=== PATIENT | male | born 1930 | race Caucasian/White ===

== ENCOUNTER 2017-02-05 21:31 | Emergency (ER) | payer OTHER, MEDICARE ==
[~2017-02-05] VITALS: Ht 170.2 cm; Wt 70.8 kg
[~2017-02-05 21:31] MED LIST: ACETAMINOPHEN650 M3 PO; ASPIR 8181 MG PO; CIPRO250 M1 PO; CIPRO500 M1 PO; CYCLOBENZAPRINE5 M2 PO; DOCUSATE SODIU100 M3 PO; FINASTERIDE5 MG PO; GABAPENTIN300 M2 PO; IBUPROFEN400 M1 PO; KEFLEX500 M1 PO; LACTULOSE10 GM/15 M PO; LIDODERM1 EACH EXT; LOSARTAN POTASS25 MG PO; LOVASTATIN40 M1 PO; MELOXICAM15 M1; MIRALAX119 GM PO; NEURONTIN100 M1; OSCAL ULTRA 6001 TAB PO; PEPCID40 M1 PO; RAPAFLO4 M1 PO; RAPAFLO8 MG PO; RETAINE MGD EY1 EACH; TYLENOL325 M1 PO; VITAMIN D31000 IU PO
--- NOTE | 2017-02-05 21:50 | ED GI/GU/ABDOMINAL COMPLAINT ---
History of Present Illness General Chief Complaint: Male Genitourinary Problems Stated Complaint: BIBA FOR URINARY RETENTION Source: patient Exam Limitations: no limitations Vital Signs & Intake/Output Vital Signs & Intake/Output Vital Signs Date Time Temp Pulse Resp B/P Pulse O2 O2 Flow FiO2 Ox Delivery Rate 02/05 2214 97.6 86 20 142/78 95 Room Air ED Intake and Output 02/06 0000 02/05 1200 Intake Total Output Total 300 Balance -300 Output, Urine 300 Patient 156 lb Weight Allergies Coded Allergies: Penicillins (RASH 02/19/16) Reconcile Medications Aspirin (Ecotrin) 81 MG TABLET.DR 1 TAB PO DAILY HEART HEALTH (Reported) Aspirin (Werner Chewable Aspirin) 81 MG TAB.CHEW 1 TAB PO DAILY HEART ( Reported) Ciprofloxacin HCl (Cipro) 500 MG TABLET 1 TAB PO BID UTI Cyclobenzaprine HCl 5 MG TABLET 1 TAB PO BID MUSCLE RELAXANT (Reported) Docusate Sodium 100 MG CAPSULE 100 MG PO DAILY NEEDED PRN CONSTIPATION Famotidine (Pepcid) 40 MG TABLET 1 TAB PO DAILY GERD (Reported) Finasteride 5 MG TABLET 1 TAB PO DAILY PROSTATE (Reported) Finasteride 5 MG TABLET 1 TAB PO DAILY PROSTATE (Reported) Gabapentin 300 MG CAPSULE 1 CAP PO BID neuropathy (Reported) Ibuprofen 400 MG TABLET 400 MG PO Q6-PRN PRN PAIN SCALE 4-6 (MODERATE) Lovastatin 40 MG TABLET 1 TAB PO DAILY CHOLESTEROL (Reported) with food Lovastatin 40 MG TABLET 1 TAB PO DAILY CHOL (Reported) with food Polyethylene Glycol 3350 (Miralax) 119 GM POWDER 17 GM PO DAILY PRN CONSTIPATION Silodosin (Rapaflo) 4 MG CAPSULE 1 CAP PO DAILY BPH (Reported) Silodosin (Rapaflo) 8 MG CAPSULE 1 CAP PO DAILY PROSTATE (Reported) Triage Nurses Notes Reviewed? yes Onset: Gradual Duration: hour(s): Timing: recent history Quality/Severity: cramping Location: suprapubic Radiation: no radiation Activities at Onset: none Prior Abdominal Problems: similar symptoms Modifying Factors: Worsens With: other (urinary retention). Associated Symptoms: abdominal pain HPI: 87 yo gentleman had suprapubic tube placed 4 days ago. He notes that starting in the evening, he has not seen any urine in the daley and has felt urinary retention. He has no fever, chills, nausea, vomiting, diarrhea. He is otherwise well. Past History Travel History Traveled to [place] past 21 day No Medical History Any Pertinent Medical History? 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 No Review of Systems Review of Systems Constitutional: Reports: no symptoms. EENTM: Reports: no symptoms. Respiratory: Reports: no symptoms. Cardiovascular: Reports: no symptoms. GI: Reports: no symptoms. Genitourinary: Reports: no symptoms. Musculoskeletal: Reports: no symptoms. Skin: Reports: no symptoms. Neurological/Psychological: Reports: no symptoms. Hematologic/Endocrine: Reports: no symptoms. Immunologic/Allergic: Reports: no symptoms. All Other Systems: Reviewed and Negative Physical Exam Physical Exam General Appearance: well developed/nourished Head: atraumatic, normal appearance Eyes: Bilateral: normal appearance. Ears, Nose, Throat, Mouth: hearing grossly normal Neck: normal inspection, supple, full range of motion Respiratory: normal breath sounds, chest non-tender, no respiratory distress, quiet respiration, lungs clear Cardiovascular: regular rate/rhythm Gastrointestinal: normal bowel sounds, soft, suprapubic tube site does not appear infection. no pus, no drainage, no bleeding.... genitalia are normal. Back: normal inspection Extremities: normal range of motion Neurologic/Psych: no motor/sensory deficits, awake, alert, oriented x 3 Skin: intact, normal color, warm/dry Core Measures ACS in differential dx? No Severe Sepsis Present: No Septic Shock Present: No Progress Differential Diagnosis: urinary retention vs uti vs other. Plan of Care: Orders Procedure Date/time Status URINALYSIS 02/05 2151 Complete Laboratory Tests 02/05/172224: Urine Color YEL, Urine Clarity CLEAR, Urine pH 6.0, Ur Specific [place] 1.020, Urine Protein TRACE H, Urine Ketones NEG, Urine Nitrite NEG, Urine Bilirubin NEG, Urine Urobilinogen 0.2, Ur Leukocyte Esterase TRACE H, Ur Microscopic SEDIMENT EXAMINED, Urine RBC 10-15 H, Urine WBC 1-3 H, Ur Epithelial Cells FEW , Urine Hemoglobin LARGE H, Urine Glucose NEG Initial ED EKG: none Departure Departure Disposition: HOME OR SELF CARE Condition: Stable Clinical Impression Primary Impression: Urinary retention Referrals: MICHELA PINON,GLENN Espinosa (PCP/Family) Departure Forms: Customer Survey General Discharge Information Comments suprapubic daley was flushed... clot expressed.... urine drained well without problem... no sign of infection... encouraged follow up with urology.
[2017-02-05 22:14] VITALS: BP 142/78
[2017-02-05] MEDS ORDERED: FINASTERIDE5 M1 PO (23:52)
[2017-02-05] MEDS ORDERED: BAYER CHEWABLE81 MG PO (23:52)
[2017-02-05] MEDS ORDERED: LOVASTATIN40 M1 PO (23:52)
[2017-02-05] MEDS ORDERED: RAPAFLO8 M1 PO (23:53)
== END 2017-02-06 00:09 ==
LOC: ERH 21:31
DX: R33.9 Retention of urine, unspecified (principal)
CPT/HCPCS: 81001

== ENCOUNTER 2017-02-22 14:13 | Emergency (ER) | payer OTHER, MEDICARE ==
[~2017-02-22] VITALS: Ht 170.2 cm; Wt 68.0 kg
[~2017-02-22 14:13] MED LIST changes: +BAYER CHEWABLE81 MG PO; +FINASTERIDE5 M1 PO; +RAPAFLO8 M1 PO
--- NOTE | 2017-02-22 14:19 | ED GENERAL ADULT ---
History of Present Illness General Chief Complaint: General Adult Stated Complaint: BIBA, S/P CHOKING EPISODE PER EMS Source: patient, old records, attorney lawyer Exam Limitations: no limitations Vital Signs & Intake/Output Vital Signs & Intake/Output Vital Signs Date Time Temp Pulse Resp B/P Pulse O2 O2 Flow FiO2 Ox Delivery Rate 02/22 1439 96.8 74 18 140/82 96 Room Air 02/22 1418 98 Room Air Allergies Coded Allergies: Penicillins (RASH 02/19/16) Reconcile Medications Aspirin (Ecotrin) 81 MG TABLET.DR 1 TAB PO DAILY HEART HEALTH (Reported) Aspirin (Werner Chewable Aspirin) 81 MG TAB.CHEW 1 TAB PO DAILY HEART ( Reported) Ciprofloxacin HCl (Cipro) 500 MG TABLET 1 TAB PO BID UTI Cyclobenzaprine HCl 5 MG TABLET 1 TAB PO BID MUSCLE RELAXANT (Reported) Docusate Sodium 100 MG CAPSULE 100 MG PO DAILY NEEDED PRN CONSTIPATION Famotidine (Pepcid) 40 MG TABLET 1 TAB PO DAILY GERD (Reported) Finasteride 5 MG TABLET 1 TAB PO DAILY PROSTATE (Reported) Finasteride 5 MG TABLET 1 TAB PO DAILY PROSTATE (Reported) Gabapentin 300 MG CAPSULE 1 CAP PO BID neuropathy (Reported) Ibuprofen 400 MG TABLET 400 MG PO Q6-PRN PRN PAIN SCALE 4-6 (MODERATE) Lovastatin 40 MG TABLET 1 TAB PO DAILY CHOLESTEROL (Reported) with food Lovastatin 40 MG TABLET 1 TAB PO DAILY CHOL (Reported) with food Polyethylene Glycol 3350 (Miralax) 119 GM POWDER 17 GM PO DAILY PRN CONSTIPATION Silodosin (Rapaflo) 4 MG CAPSULE 1 CAP PO DAILY BPH (Reported) Silodosin (Rapaflo) 8 MG CAPSULE 1 CAP PO DAILY PROSTATE (Reported) Triage Note: 87 Y/O MALE PRATIKA FROM ASSISTED LIVING FACILITY FOR EVAL S/P CHOKING EPISODE TODAY. PT ARRIVES ALERT AND ORIENTED, SPEAKING CLEARLY WITH NO DISTRESS NOTED. PT STATES HE WAS EATING A BIG PIECE OF CHICKEN AND CHOKED, "THEY DID THE HEIMLICH AND IT CAME OUT". PT ONLY C/O "SCRATCHY THROAT". DENIES FEELING SOB. DENIES DIFFICULTY BREATHING OR SWALLOWING. HANDLING OWN SECRETIONS. AWAITING EVAL Triage Nurses Notes Reviewed? yes Onset: Abrupt Duration: hour(s): (1), better, resolved prior to arrival Timing: single episode today Injury Environment: home Severity: mild, moderate Severity Numbers: 6 No Modifying Factors: none Associated Symptoms: denies HPI: 87-year-old male presents emergency room brought in by ambulance from the assisted living after he had a witnessed choking episode on a piece of chicken earlier today. A attorney lawyer perform the Heimlich maneuver and the patient was able to spit out the chicken. Since then he states he's had no complaints no cough congestion hemoptysis chest pain abdominal pain nausea vomiting. No fever or chills. The patient is otherwise without any complaints at this time asymptomatic. (ARACELIS CONWAY) Past History Travel History Traveled to [place] past 21 day No Medical History Any Pertinent Medical History? 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 No (ARACELIS CONWAY) Review of Systems Review of Systems Constitutional: Reports: see HPI. All Other Systems: Reviewed and Negative Comments Review of systems: See HPI, All other systems negative. Constitutional, no chills no fever, no malaise HEENT: No visual changes no sore throat no congestion, Cardiovascular: No chest pain , no palpitation Skin, no rashes, no change in skin Respiratory: No dyspnea no cough no sputum GI: No nausea no vomiting, no diarrhea, : No dysuria Muscle skeletal: No joint pain, no back pain, no neck pain, Neurologic: no headache Psych: No stress Heme/endocrine: No bruising no bleeding Immunology: No lymphadenopathy (ARACELIS CONWAY) Physical Exam Physical Exam General Appearance: well developed/nourished, alert, awake Comments: Well-developed well-nourished person in no acute distress HEENT: Normal EENT exam; PERRL, EOMI, HEAD is atraumatic. moist mucous membranes. Neck: Supple,normal range of motion Back:Full range of motion Cardiovascular: Regular rate and rhythms no murmurs Respiratory: No respiratory distress. Patient speaking in full complete sentences. Breath sounds clear to auscultation bilaterally: NO W/R/R Abdomen: Soft, nontender nondistended Extremity: No edema, full range of motion of extremities Neuro: Alert oriented x3, motor sensory normal, cranial nerves II through XII grossly intact. There were no obvious focal neurologic abnormalities. Skin: No appreciable rash on exposed skin, skin is warm and dry. Psych: Mood and affect is normal, memory and judgment is normal. Core Measures ACS in differential dx? No CVA/TIA Diagnosis: No Severe Sepsis Present: No Septic Shock Present: No (ARACELIS CONWAY) Progress Differential Diagnoses I considered the following diagnoses in my evaluation of the patient: Aspiration , food bolus, esophageal stricture, pneumonia Plan of Care: Patient clinically appears well without any complaints speaking full complete sentences tolerating secretions. He denies nausea vomiting pain case was discussed with Dr. lagunas who agrees with the plan I discussed with his attorney lawyer signs of infection to look out for, follow with his primary care this week they feel comfortable this plan cleared for discharge Initial ED EKG: none (ARACELIS CONWAY) Departure Departure Time of Disposition: 1440 Disposition: HOME OR SELF CARE Condition: Stable Clinical Impression Primary Impression: Choking episode Referrals: MICHELA PINON,GLENN Espinosa (PCP/Family) Additional Instructions: OBSERVE FOR SIGNS OF INFECTION: FEVER, CHILLS COUGH. RETURN TO THE ER ANYTIME WITH ANY CONCERNS Departure Forms: Customer Survey General Discharge Information (ARACELIS CONWAY) PA/FINANCIAL SECRETARY Co-Sign Statement Statement: ED Attending supervision documentation- [x] I saw and evaluated the patient. I have also reviewed all the pertinent lab results and diagnostic results. I agree with the findings and the plan of care as documented in the PA's/FINANCIAL SECRETARY's documentation. [] I have reviewed the ED Record and agree with the PA's/FINANCIAL SECRETARY's documentation. [] Additions or exceptions (if any) to the PAs/FINANCIAL SECRETARY's note and plan are summarized below: [] (DAYNA JACK,TE Locke) Critical Care Note Critical Care Note Critical Care Time: non-applicable (ARACELIS CONWAY)
[2017-02-22 14:39] VITALS: BP 140/82
== END 2017-02-22 16:28 ==
LOC: ERH 14:13
DX: T18.108A Unspecified foreign body in esophagus causing other injury, initial encounter (principal)

== ENCOUNTER 2017-04-10 19:31 | Emergency (ER) | payer OTHER, MEDICARE ==
--- NOTE | 2017-04-10 19:41 | ED MVC/FALL/TRAUMA COMPLAINT ---
History of Present Illness General Chief Complaint: Fall Stated Complaint: BIBA FALL Source: patient, family, EMS Exam Limitations: poor historian Vital Signs & Intake/Output Vital Signs & Intake/Output Vital Signs Date Time Temp Pulse Resp B/P B/P Pulse O2 O2 Flow FiO2 Mean Ox Delivery Rate 04/10 2139 97.5 84 18 142/74 97 Room Air Room Air 04/10 1938 97.5 18 160/80 96 Room Air Allergies Coded Allergies: Penicillins (RASH 02/19/16) Reconcile Medications Aspirin (Ecotrin) 81 MG TABLET.DR 1 TAB PO DAILY HEART HEALTH (Reported) Aspirin (Werner Chewable Aspirin) 81 MG TAB.CHEW 1 TAB PO DAILY HEART ( Reported) Ciprofloxacin HCl (Cipro) 500 MG TABLET 1 TAB PO BID UTI Cyclobenzaprine HCl 5 MG TABLET 1 TAB PO BID MUSCLE RELAXANT (Reported) Docusate Sodium 100 MG CAPSULE 100 MG PO DAILY NEEDED PRN CONSTIPATION Famotidine (Pepcid) 40 MG TABLET 1 TAB PO DAILY GERD (Reported) Finasteride 5 MG TABLET 1 TAB PO DAILY PROSTATE (Reported) Finasteride 5 MG TABLET 1 TAB PO DAILY PROSTATE (Reported) Gabapentin 300 MG CAPSULE 1 CAP PO BID neuropathy (Reported) Ibuprofen 400 MG TABLET 400 MG PO Q6-PRN PRN PAIN SCALE 4-6 (MODERATE) Lovastatin 40 MG TABLET 1 TAB PO DAILY CHOLESTEROL (Reported) with food Lovastatin 40 MG TABLET 1 TAB PO DAILY CHOL (Reported) with food Polyethylene Glycol 3350 (Miralax) 119 GM POWDER 17 GM PO DAILY PRN CONSTIPATION Silodosin (Rapaflo) 4 MG CAPSULE 1 CAP PO DAILY BPH (Reported) Silodosin (Rapaflo) 8 MG CAPSULE 1 CAP PO DAILY PROSTATE (Reported) Triage Note: 87 YEAR OLD MALE BIBA WITH FAMILY AFTER WHEELCHAIR TIPPED BACKWARDS GOING DOWN SOME STAIRS. PT AND FAMILY DENY HEADSTRIKE, LOC. PT REPORTS CHRONIC PAIN TO NECK AND BACK BUT EXACERBATED BY RECENT FALL. MARTINEZ AMAYA TO BEDSIDE FOR EVAL. Triage Nurses Notes Reviewed? yes Onset: Abrupt Duration: minute(s):, constant, continues in ED Timing: recent history Severity: moderate, severe Injuries/Fall Location: head, neck Method of Injury: fall Loss of Consciousness: no loss of consciousness HPI: 87-year-old male comes into emergency room for further evaluation of neck pain. Patient was being brought down steps in wheelchair and his neck flung backwards. His head may have hit the back of the wheelchair. No loss of consciousness. Patient complains of neck pain. Denies any extremity injuries. Patient did not fall down the steps and did not get flung from the wheelchair. No hip pain or extremity injuries. Some upper back pain. Denies any other associated symptoms. (JAY GUTIERRES) Past History Travel History Traveled to [place] past 21 day No Medical History Any Pertinent Medical History? 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 No (JAY GUTIERRES) Review of Systems Review of Systems Constitutional: Reports: no symptoms. Eyes: Reports: no symptoms. Ears, Nose, Throat, Mouth: Reports: no symptoms. Respiratory: Reports: no symptoms. Cardiovascular: Reports: no symptoms. Gastrointestinal/Abdominal: Reports: no symptoms. Genitourinary: Reports: no symptoms. Musculoskeletal: Reports: see HPI. Skin: Reports: no symptoms. Neurological/Psychological: Reports: no symptoms. All Other Systems: Reviewed and Negative (JAY GUTIERRES) Physical Exam Physical Exam General Appearance: well developed/nourished, alert, awake Head: atraumatic, normal appearance Eyes: Bilateral: normal appearance, EOMI. Ears, Nose, Throat, Mouth: hearing grossly normal, moist mucous membrane Neck: normal inspection, full range of motion Respiratory: normal breath sounds, no respiratory distress Gastrointestinal: soft, non-tender Back: normal inspection Extremities: normal range of motion Neurologic/Psych: awake, alert, oriented x 3, normal gait, normal mood/affect Skin: intact, normal color Core Measures ACS in differential dx? No Severe Sepsis Present: No Septic Shock Present: No (JAY GUTIERRES) Progress Differential Diagnosis: aoritic dissection (04/11/2017 8:33:38 AM), abd injury, C /T/L spine injury, ext injury, ICH, pelvis injury, pnemothorax, spinal cord injury Plan of Care: case was signed out to me at [address] d/w the pt and his family his ct results at length. need for close f/u with his pmd, rest, heating pads, tylenol for pain if needed. thye feel comfortable with plan i answered all of their questions, cleared for dcDiagnostic Imaging: Viewed by Me: CT Scan. Discussed w/RAD: CT Scan. Radiology Impression: EXAM TYPE: CAT - CT CERV SPINE WO IV CONTRAST; CT HEAD WO IV CONTRAST EXAMINATION: CT HEAD WITHOUT CONTRAST CT CERVICAL SPINE WITHOUT CONTRAST CLINICAL INFORMATION: Trauma. Neck pain. Hit head. COMPARISON: Head CT 11/11/2016. Cervical spine CT 08/23/2016 TECHNIQUE: Axial images of the head and cervical spine were obtained. Reformatted images were reviewed. DLP: 1132 mGy-cm FINDINGS: Head CT: No intracranial hemorrhage or territorial infarction. No extra-axial fluid collection. No mass effect or midline shift. There is persistent prominence of the ventricles and sulcal spaces. Periventricular white matter hypoattenuation likely reflects chronic ischemic microangiopathy. No significant subgaleal hematoma or calvarial fracture. Mastoid air cells and paranasal sinuses are aerated. Cervical spine CT: No fracture or dislocation. No prevertebral soft tissue swelling. No evidence of traumatic spondylolisthesis. No widening of the atlantoaxial or atlantooccipital articulations. Multilevel degenerative endplate changes with osteophyte formation and disc space narrowing. Multilevel facet arthropathy. Crowned dens appearance may reflect CPPD or degenerative changes. Spinal curvature noted. There is a degree of ectasia of the visualized portions of the thoracic aorta, likely not significantly changed compared to exam 08/23/2016; this is partially imaged. Emphysema. IMPRESSION: 1. No acute intracranial pathology. Chronic intracranial findings as described above. 2. No acute cervical spine pathology. At least moderate multilevel degenerative changes of the spine. Hand-Off Endorsed To: ARACELIS CONWAY Pending: CT (JAY GUTIERRES) Plan of Care: case was signed out to me at [address] d/w the pt and his family his ct results at length. need for close f/u with his pmd, rest, heating pads, tylenol for pain if needed. thye feel comfortable with plan i answered all of their questions, cleared for dc (SARITA HENRIQUEZ,ARACELIS) Departure Departure Disposition: HOME OR SELF CARE Condition: Stable Clinical Impression Primary Impression: Cervical strain Secondary Impressions: Head injury Referrals: MICHELA PINON,GLENN Espinosa (PCP/Family) Additional Instructions: Tylenol for pain. Moist heat to neck. Please go over all results of today's visit with your primary care doctor. Contact your primary care doctor to let them know you were here in the emergency room. There may be nonspecific findings which may not be related to your visit today here in the emergency room but may require further evaluation and chronic monitoring by your primary care doctor. If you had a laceration today the chance of foreign body always remains. You should follow-up with your primary care doctor for recheck in 3-5 days for a wound check. If you had an x-ray done there is a chance that a fracture could have been missed on initial read and you should follow-up with your primary care doctor for repeat x-rays if symptoms persist. If your blood pressure was elevated here in the emergency room please have rechecked by her primary care doctor within the next 48 hours by your primary care doctor. If you were prescribed a narcotic here in the emergency room or any type of controlled substances you're not allowed to drive while taking this medication or operate any type of heavy machinery. Narcotics can make you feel lightheaded dizziness nausea and can cause constipation. You may need to lemon picker a stool softener. Thank you for choosing [facility] emergency room. Please return to the emergency room immediately if you have any other concerns worsening of symptoms. Departure Forms: Customer Survey General Discharge Information (JAY GUTIERRES) Departure Time of Disposition: 2102 (ARACELIS CONWAY) PA/WELDING MACHINE OPERATOR RESISTANCE Co-Sign Statement Statement: ED Attending supervision documentation- [] I saw and evaluated the patient. I have also reviewed all the pertinent lab results and diagnostic results. I agree with the findings and the plan of care as documented in the PA's/WELDING MACHINE OPERATOR RESISTANCE's documentation. [x] I have reviewed the ED Record and agree with the PA's/WELDING MACHINE OPERATOR RESISTANCE's documentation. [] Additions or exceptions (if any) to the PAs/WELDING MACHINE OPERATOR RESISTANCE's note and plan are summarized below: [] (NILAY PINON,IZA Rizvi)
--- NOTE | 2017-04-10 20:44 | CT SCAN REPORT ---
EXAMINATION: CT HEAD WITHOUT CONTRAST CT CERVICAL SPINE WITHOUT CONTRAST CLINICAL INFORMATION: Trauma. Neck pain. Hit head. COMPARISON: Head CT 11/11/2016. Cervical spine CT 08/23/2016 TECHNIQUE: Axial images of the head and cervical spine were obtained. Reformatted images were reviewed. DLP: 1132 mGy-cm FINDINGS: Head CT: No intracranial hemorrhage or territorial infarction. No extra-axial fluid collection. No mass effect or midline shift. There is persistent prominence of the ventricles and sulcal spaces. Periventricular white matter hypoattenuation likely reflects chronic ischemic microangiopathy. No significant subgaleal hematoma or calvarial fracture. Mastoid air cells and paranasal sinuses are aerated. Cervical spine CT: No fracture or dislocation. No prevertebral soft tissue swelling. No evidence of traumatic spondylolisthesis. No widening of the atlantoaxial or atlantooccipital articulations. Multilevel degenerative endplate changes with osteophyte formation and disc space narrowing. Multilevel facet arthropathy. Crowned dens appearance may reflect CPPD or degenerative changes. Spinal curvature noted. There is a degree of ectasia of the visualized portions of the thoracic aorta, likely not significantly changed compared to exam 08/23/2016; this is partially imaged. Emphysema. IMPRESSION: 1. No acute intracranial pathology. Chronic intracranial findings as described above. 2. No acute cervical spine pathology. At least moderate multilevel degenerative changes of the spine.
[2017-04-10 21:39] VITALS: BP 142/74
== END 2017-04-10 21:40 ==
LOC: ERH 19:31
DX: S16.1XXA Strain of muscle, fascia and tendon at neck level, initial encounter (principal); S09.90XA Unspecified injury of head, initial encounter; W22.8XXA Striking against or struck by other objects, initial encounter; Y92.9 Unspecified place or not applicable; Y93.9 Activity, unspecified

== ENCOUNTER 2017-04-16 19:58 | Emergency (ER) | payer OTHER, MEDICARE ==
[~2017-04-16] VITALS: Ht 167.6 cm; Wt 65.8 kg
--- NOTE | 2017-04-16 20:00 | ED GI/GU/ABDOMINAL COMPLAINT ---
History of Present Illness General Chief Complaint: Male Genitourinary Problems Stated Complaint: BIBA BLOOD IN HIS URINE Source: patient, old records, CARETAKERS Exam Limitations: no limitations Allergies Coded Allergies: Penicillins (RASH 02/19/16) Reconcile Medications Aspirin (Werner Chewable Aspirin) 81 MG TAB.CHEW 1 TAB PO DAILY HEART ( Reported) Ciprofloxacin HCl (Cipro) 500 MG TABLET 1 TAB PO BID UTI Cyclobenzaprine HCl 5 MG TABLET 1 TAB PO BID MUSCLE RELAXANT (Reported) Famotidine 20 MG TABLET 1 TAB PO DAILY GI (Reported) Finasteride 5 MG TABLET 1 TAB PO DAILY PROSTATE (Reported) Gabapentin 300 MG CAPSULE 1 CAP PO BID neuropathy (Reported) Lovastatin 40 MG TABLET 1 TAB PO DAILY CHOLESTEROL (Reported) with food Meloxicam 15 MG TABLET 1 TAB PO DAILY PAIN (Reported) Polyethylene Glycol 3350 (Miralax) 119 GM POWDER 17 GM PO DAILY PRN CONSTIPATION Sennosides/Docusate Sodium (Senna S Tablet) 8.6 MG-50 MG TABLET 1 TAB PO QPM GI (Reported) Silodosin (Rapaflo) 4 MG CAPSULE 1 CAP PO QPM BPH (Reported) Triage Nurses Notes Reviewed? yes Onset: Abrupt Duration: day(s): (3), constant Timing: remote history Quality/Severity: burning Severity Numbers: 4 Location: suprapubic Radiation: no radiation Activities at Onset: none Prior Abdominal Problems: similar symptoms No Modifying Factors: none Associated Symptoms: denies HPI: 87 Year old male with past medical history of hypertension, hyperlipidemia, aortic aneurysm, BPH, arthritis presents after his caretakers noted blood in his suprapubic catheter which was replaced 3 days ago associated with burning pain around the site of the catheter. The patient has had no fever chills nausea or vomiting. There's been no change in his mental status per caretakers. He is not currently on any antibiotics no diarrhea nausea or vomiting. No modifying factors or associated symptoms otherwise. (SARITA HENRIQUEZ,ARACELIS) Vital Signs & Intake/Output Vital Signs & Intake/Output Vital Signs Date Time Temp Pulse Resp B/P B/P Pulse O2 O2 Flow FiO2 Mean Ox Delivery Rate 04/16 2248 98.0 78 20 168/86 97 Room Air 04/16 2216 98.9 76 20 166/85 96 04/16 2004 97.6 76 20 175/85 96 Past History Medical History Any Pertinent Medical History? 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 No (ARACELIS CONWAY) Review of Systems Review of Systems Constitutional: Reports: see HPI. All Other Systems: Reviewed and Negative Comments Review of systems: See HPI, All other systems negative. Constitutional, no chills no fever, no malaise HEENT: No visual changes no sore throat no congestion Cardiovascular: No chest pain , no palpitation , Skin: no rashes, no change in skin Respiratory: No dyspnea no cough no sputum GI: No nausea no vomiting, no diarrhea, no bloating/constipation : No dysuria hematuria, no frequency, no discharge Muscle skeletal: No joint pain,no back pain, no neck pain, Neurologic: No numbness no headache Psych: No stress Heme/endocrine: No bruising no bleeding Immunology: No lymphadenopathy (ARACELIS CONWAY) Physical Exam Physical Exam General Appearance: well developed/nourished, alert, awake Gastrointestinal: soft Comments: Well-developed well-nourished person in no acute distress HEENT: Normal EENT exam; PERRL, EOMI, HEAD is atraumatic. moist mucous membranes. Neck: Supple, normal range of motion Back: Nontender, no CVA tenderness. Full range of motion Cardiovascular: Regular rate and rhythms no murmurs rubs Respiratory: Chest nontender.There were no bony deformities, no asymmetry. No respiratory distress. Patient speaking in full complete sentences. Breath sounds clear to auscultation bilaterally: NO W/R/R Abdomen: Soft, nontender nondistended, no appreciable organomegaly. Normal bowel sounds. No rebound/guarding, the area surrounding the suprapubic catheter is clean and dried no overlying erythema Extremity: No edema, full range of motion of extremities, Neuro: Alert oriented x3, motor sensory normal. There were no obvious focal neurologic abnormalities. Skin: No appreciable rash on exposed skin, skin is warm and dry. Psych: Mood and affect is normal, memory and judgment is normal. Core Measures ACS in differential dx? No Severe Sepsis Present: No Septic Shock Present: No (ARACELIS CONWAY) Progress Differential Diagnosis: perforated viscous, SBO, ureterolithiasis, urinary retention, urethritis, UTI/pyelo, malignancy Initial ED EKG: none (ARACELIS CONWAY) Plan of Care: Orders Procedure Date/time Status CBC WITHOUT DIFFERENTIAL 04/16 2040 Complete BASIC METABOLIC PANEL 04/16 2040 Complete CULTURE,URINE 04/16 2015 Active URINALYSIS 04/16 1959 Complete Laboratory Tests 04/16/172054: Anion Gap 9, Estimated GFR 48 L, BUN/Creatinine Ratio 26.4 H, Glucose 110 H, Calcium 9.1, CBC w Diff NO MAN DIFF REQ, RBC 4.37 L, MCV 87.2, MCH 28.7, RDW 14.3, MPV 8.8, Gran % 58.9, Lymphocytes % 26.7, Monocytes % 7.0, Eosinophils % 6.9 H, Basophils % 0.5, Absolute Granulocytes 5.6, Absolute Lymphocytes 2.6, Absolute Monocytes 0.7 H, Absolute Eosinophils 0.7, Absolute Basophils 0.1, PUBS MCHC 32.9 L 04/16/172011: Urinalysis LIGHT H, Urine Color YEL, Urine Clarity HAZY H, Urine pH 6.0, Ur Specific [place] >= 1.030, Urine Protein 100 H, Urine Ketones NEG, Urine Nitrite POS H, Urine Bilirubin NEG, Urine Urobilinogen 0.2, Ur Leukocyte Esterase MOD H, Ur Microscopic SEDIMENT EXAMINED, Urine RBC >75 H, Urine WBC > 75 H, Ur Epithelial Cells RARE, Urine Bacteria MANY H, Urine Mucus MANY H, Urine Hemoglobin LARGE H, Urine Glucose NEG Microbiology 04/16 2012 URINE ROUT: Urine Culture - RECD Labs ordered old records reviewed patient's previous urine cultures have grown out Klebsiella sensitive to Cipro Case discussed with Dr. Sierra who evaluated the patient and agrees with plan I discussed with the patient at length all of their results. I had an extensive conversation regarding need for close follow up with their primary care physician this week as well as return precautions. I answered all of their questions, they feel comfortable with the plan and follow-up care. I discussed with the patient/family the medications that they will receive. I gave them signs and symptoms that could indicate an adverse reaction. I have advised them to limit their activities until they can see how they respond to the medication. (ARACELIS CONWAY) Departure Departure Time of Disposition: 2156 Disposition: HOME OR SELF CARE Condition: Stable Clinical Impression Primary Impression: UTI (urinary tract infection) Referrals: MICHELA PINON,GLENN Espinosa (PCP/Family) Additional Instructions: CIPRO DIRECTED. FOLLOW UP WITH YOUR PMD ON TUESDAY, RETURN TO THE ER WITH ANY CONCERNS Departure Forms: Customer Survey General Discharge Information Prescriptions: Current Visit Scripts Ciprofloxacin HCl (Cipro) 1 TAB PO BID #14 TAB (ARACELIS CONWAY) PA/TRAY WORKER Co-Sign Statement Statement: ED Attending supervision documentation- [X] I saw and evaluated the patient. I have also reviewed all the pertinent lab results and diagnostic results. I agree with the findings and the plan of care as documented in the PA's/TRAY WORKER's documentation. [] I have reviewed the ED Record and agree with the PA's/TRAY WORKER's documentation. [] Additions or exceptions (if any) to the PAs/TRAY WORKER's note and plan are summarized below: [] (TIMOTHY PINON,TE Cortes)
[2017-04-16] MEDS ORDERED: FAMOTIDINE20 M1 PO (20:23)
[2017-04-16] MEDS ORDERED: SENNA S TABLET1 EACH PO (20:24)
[2017-04-16] MEDS ORDERED: MELOXICAM15 M1 PO (20:25)
[2017-04-16 21:12] LABS: ABSOLUTE BASOPHIL COUNT 0.1 /CUMM (0.0-0.2); ABSOLUTE EOSINOPHIL COUNT 0.7 /CUMM (0.0-0.7); ABSOLUTE GRANULOCYTE CT 5.6 /CUMM (1.4-6.5); ABSOLUTE LYMPH COUNT 2.6 /CUMM (1.2-3.4); ABSOLUTE MONOCYTE COUNT 0.7 /CUMM (0.10-0.60); BASOPHIL % 0.5 % (0.0-2.0); EOSINOPHIL % 6.9 % (0-5); GRANULOCYTE % 58.9 % (42.2-75.2); HEMATOCRIT 38.1 % (42-52); MEAN CORPUSCULAR HGB 28.7 PG (27.0-31.0); MEAN CORPUSCULAR HGB CONC 32.9 G/DL (33.0-37.0); MEAN CORPUSCULAR VOLUME 87.2 FL (80.0-94.0); MEAN PLATELET VOLUME 8.8 FL (7.4-10.4); PLATELET COUNT 237 /CUMM (130-400); RBC DISTRIBUTION WIDTH 14.3 % (11.5-14.5); RED BLOOD CELL CT 4.37 /CUMM (4.70-6.10); WHITE BLOOD CELL COUNT 9.6 /CUMM (4.8-10.8)
[2017-04-16] MEDS ORDERED: CIPRO500 M1 PO (21:48)
[2017-04-16 22:48] VITALS: BP 168/86
== END 2017-04-16 22:51 ==
LOC: ERH 19:58
PROVIDERS: Physician Assistant Medical
DX: N39.0 Urinary tract infection, site not specified (principal)
CPT/HCPCS: 81001; 87086

== ENCOUNTER 2017-05-14 21:03 | Inpatient (IN) | payer OTHER, MEDICARE ==
[~2017-05-14] VITALS: Ht 177.8 cm; Wt 68.0 kg
[~2017-05-14 21:03] MED LIST changes: +FAMOTIDINE20 M1 PO; +MELOXICAM15 M1 PO; +SENNA S TABLET1 EACH PO
--- NOTE | 2017-05-14 21:18 | NUR ---
MINNIE FROM [facility] FOR C/O SOB, WEAKNESS AND PRODUCTIVE COUGH X 3 DAYS. DUO NEB GIVEN IN ROUTE, #18G LEFT HAND BY EMS. PT ARRIVES IN NAD.
--- NOTE | 2017-05-14 21:23 | NUR ---
PT PRESENTS TO ER IN NAD, RESP EVEN, NONLABORED, EQUAL RISE AND FALL OF THE CHEST. PT A&OX4, DENIES PAIN OR DISCOMFORT. REPORTS A COUGH FOR PAST 2-3 DAYS AND INTERMITTENT SOB. FAMILY NOW AT BEDSIDE. ED MD AT BEDSIDE.
--- NOTE | 2017-05-14 21:44 | ED DYSPNEA/ASTHMA COMPLAINT ---
History of Present Illness General Chief Complaint: General Adult Stated Complaint: BIBA FOR DARK URINE,AMS,CONGESTION Source: patient, family, old records, EMS Exam Limitations: no limitations Vital Signs & Intake/Output Vital Signs & Intake/Output Vital Signs Date Time Temp Pulse Resp B/P B/P Pulse O2 O2 Flow FiO2 Mean Ox Delivery Rate 05/15 0329 97.7 70 18 142/70 94 Room Air 05/15 0254 94 Room Air Room Air 05/14 2303 97.2 85 18 141/73 93 Room Air 05/14 2232 94 Room Air Room Air 05/14 2110 97.7 61 20 140/90 97 Aerosol Mask ED Intake and Output 05/15 0000 05/14 1200 Intake Total Output Total Balance Patient 150 lb Weight Weight Reported by Patient Measurement Method Allergies Coded Allergies: Penicillins (RASH 02/19/16) Reconcile Medications Aspirin (Werner Chewable Aspirin) 81 MG TAB.CHEW 1 TAB PO DAILY HEART ( Reported) Cyclobenzaprine HCl 5 MG TABLET 1 TAB PO BID MUSCLE RELAXANT (Reported) Famotidine 20 MG TABLET 1 TAB PO DAILY GI (Reported) Finasteride 5 MG TABLET 1 TAB PO DAILY PROSTATE (Reported) Gabapentin 300 MG CAPSULE 1 CAP PO BID neuropathy (Reported) Lovastatin 40 MG TABLET 1 TAB PO DAILY CHOLESTEROL (Reported) with food Polyethylene Glycol 3350 (Miralax) 119 GM POWDER 17 GM PO DAILY PRN CONSTIPATION Sennosides/Docusate Sodium (Senna S Tablet) 8.6 MG-50 MG TABLET 1 TAB PO QPM GI (Reported) Silodosin (Rapaflo) 4 MG CAPSULE 1 CAP PO QPM BPH (Reported) Core Measure Meds Pre-Hospital aspirin Triage Note: BIBA FROM [facility] FOR C/O SOB, WEAKNESS AND PRODUCTIVE COUGH X 3 DAYS. DUO NEB GIVEN IN ROUTE, #18G LEFT HAND BY EMS. PT ARRIVES IN NAD. Triage Nurses Notes Reviewed? yes Onset: 3 days Duration: day(s):, continues in ED, intermittent Timing: recent history Severity: moderate Activities at Onset: rest Prior Episodes/Possible Cause: occasional episodes Associated Symptoms: cough, weakness HPI: 2 weeks prior to admission patient was treated for UTI with Cipro. 1 week prior to admission his suprapubic catheter was changed. 3 days prior to admission family note patient has had episodes of confusion nonproductive cough decreased appetite dark urine in the suprapubic tube collection bag along with increased urine output from the penis. 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 He also complains of abdominal discomfort about the suprapubic tube site. There has been no fever chills nausea vomiting diarrhea dysuria rash bleeding headache chest pain Past History Travel History Traveled to [place] past 21 day No Medical History Any Pertinent Medical History? 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 No Review of Systems Review of Systems Constitutional: Reports: see HPI, malaise. EENTM: Reports: no symptoms. Respiratory: Reports: see HPI, cough, short of breath. Cardiovascular: Reports: no symptoms. GI: Reports: no symptoms. Genitourinary: Reports: see HPI. Musculoskeletal: Reports: no symptoms. Skin: Reports: no symptoms. Neurological/Psychological: Reports: see HPI, confusion. Hematologic/Endocrine: Reports: no symptoms. Immunologic/Allergic: Reports: no symptoms. All Other Systems: Reviewed and Negative Physical Exam Physical Exam General Appearance: well developed/nourished, alert, awake, anxious, mild distress, obese Head: atraumatic, normal appearance Eyes: Bilateral: normal appearance, PERRL, EOMI. Ears, Nose, Throat: normal pharynx, normal ENT inspection Neck: normal inspection, supple, full range of motion, no midline tenderness Respiratory: chest non-tender, quiet respiration, decreased breath sounds, tachypnea Cardiovascular: normal peripheral pulses, irregularly irregular, norml femoral pulses equa Peripheral Pulses: 4+ carotid (R), 4+ carotid (L) Gastrointestinal: normal bowel sounds, soft, non-tender, no organomegaly, suprapubic tube site without evidence of inflammation discharge erythema but with foul smell Extremities: normal inspection, normal capillary refill, normal range of motion, no edema Neurologic/Psych: no motor/sensory deficits, awake, alert, oriented x 3, normal mood/affect, 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 No Severe Sepsis Present: No Septic Shock Present: No Progress Differential Diagnosis: bronchitis, CHF, COPD, pneumonia Plan of Care: Orders Procedure Date/time Status Regular Diet 05/15 B Active CBC WITHOUT DIFFERENTIAL 05/15 06 Active BASIC ELECTROLYTES PLUS BUN&CR 05/15 06 Active Suprapubic Cath Care 05/15 0429 Active Pathway - chart 05/15 0239 Active Vital Signs 05/15 0159 Active Teach/Educate 05/15 0159 Active Pain Treatment and Response 05/15 0159 Active Nutritional Intake, Monitor 05/15 0159 Active Isolation 05/15 0159 Active Intake & Output 05/15 0159 Active Patient Care Conference 05/15 0159 Active Activity/Ambulation 05/15 0159 Active SWALLOW EVALUATION 05/15 0038 Active TRC EVALUATION (GEN) 05/15 0038 Active PT Evaluate & Treat 05/15 0038 Active Pathway - chart 05/15 0038 Active House Staff 05/15 0038 Active Code Status 05/15 0038 Active VTE Mechanical Prophylaxis 05/15 UNK Active PHYSICIAN CONSULT 05/15 UNK Active Patient Data 05/14 2318 Active OXYGEN SETUP (GEN) 05/14 2231 Active Saline Lock 05/14 2231 Active Admit to inpatient 05/14 2231 Active Vital Signs 05/14 2231 Active Activity/Ambulation 05/14 2231 Active Code Status 05/14 2231 Complete BLOOD CULTURE 05/14 2230 Active CULTURE,URINE 05/14 2133 Active BLOOD CULTURE 05/14 2133 Active URINALYSIS 05/14 2133 Complete TROPONIN LEVEL 05/14 2133 Complete MAGNESIUM 05/14 2133 Complete LACTIC ACID 05/14 2133 Complete COMPREHENSIVE METABOLIC PANEL 05/14 2133 Complete CBC WITHOUT DIFFERENTIAL 05/14 2133 Complete B-TYPE NATRIURETIC PEP (BNP) 05/14 2133 Complete Intake & Output 05/14 2109 Active EKG 05/14 2104 Active Current Medications Sig/Tiffanie Start time Last Medication Dose Stop Time Status Admin Senna/Docusate Sodium 1 TAB QPM 05/15 2200 AC (Senokot S) Atorvastatin Calcium 10 MG 1700 05/15 1700 UNVr (Lipitor) Aspirin 81 MG DAILY 05/15 1000 UNVr (Aspirin) Famotidine 20 MG DAILY 05/15 1000 UNVr (Pepcid) Finasteride 5 MG DAILY 05/15 1000 UNVr (Proscar) Gabapentin 300 MG BID 05/15 1000 UNVr (Neurontin) Heparin Sodium 5,000 UNIT Q8 05/15 0600 UNVr 05/15 (Porcine) 0317 Ceftazidime 1,000 MG Q12H 05/15 0300 AC 05/15 (Fortaz) 0314 Acetaminophen 650 MG Q6P PRN 05/15 0245 UNVr (Tylenol) Acetaminophen 1,000 MG Q6P PRN 05/15 0245 UNVr (Ofirmev) Morphine Sulfate 1 MG Q6PRN PRN 05/15 0245 UNVr (Morphine) Non-Formulary 0 SEE ADMIN CRITERIA 05/15 0045 UNVr Medication (NON FORMULARY) Polyethylene Glycol 17 GM DAILY PRN 05/15 0045 UNVr (Miralax) Sodium Chloride 1,000 ML ONCE ONE 05/15 0015 CAN (Normal Saline 0.9%) 05/15 0814 Laboratory Tests 05/15/17 0033: Lactic Acid Cancelled 05/14/172211: Urine Color YEL, Urine Clarity CLDY H, Urine pH 6.5, Ur Specific Jones 1.025, Urine Protein >=300 H, Urine Ketones NEG, Urine Nitrite NEG, Urine Bilirubin NEG, Urine Urobilinogen 0.2, Ur Leukocyte Esterase MOD H, Ur Microscopic SEDIMENT EXAMINED, Urine RBC 10-15 H, Urine WBC > 75 H, Ur Epithelial Cells RARE, Urine Bacteria MANY H, Urine Mucus FEW, Urine Hemoglobin LARGE H, Urine Glucose NEG 05/14/172204: Anion Gap 16, Estimated GFR 52 L, BUN/Creatinine Ratio 27.7 H, Glucose 130 H, Lactic Acid 1.7, Calcium 9.1, Magnesium 2.0, Total Bilirubin 0.4, AST 21, ALT 51 , Alkaline Phosphatase 89, Troponin I 0.03, Trc-K-Rwatfhzqqar Pept 336 H, Total Protein 7.4, Albumin 3.8, Globulin 3.6, Albumin/Globulin Ratio 1.1, CBC w Diff NO MAN DIFF REQ, RBC 4.74, MCV 86.8, MCH 28.2, RDW 14.5, MPV 8.7, Gran % 48.0, Lymphocytes % 35.5, Monocytes % 10.3 H, Eosinophils % 5.6 H, Basophils % 0.6, Absolute Granulocytes 4.7, Absolute Lymphocytes 3.5 H, Absolute Monocytes 1.0 H, Absolute Eosinophils 0.5, Absolute Basophils 0.1, PUBS MCHC 32.5 L Microbiology 05/14 2256 BLOOD: Blood Culture - RECD 05/14 2216 BLOOD: Blood Culture - RECD 05/14 2212 URINE ROUT: Urine Culture - RECD Diagnostic Imaging: Viewed by Me: Radiology Read, CT Scan. Discussed w/RAD: Radiology Read, CT Scan. Radiology Impression: 1. No pulmonary embolus identified. 2. Ascending aortic aneurysm measuring approximately 4.8 cm. 3. Upper lobe predominant emphysema. 4. Age-indeterminate compression deformities in the lower thoracic and upper lumbar spine. VTE: negative CXR Impression: Unremarkable chest exam. Initial ED EKG: normal axis, normal intervals, normal p-waves, normal QRS complex, normal sinus rhythm, no ST T wave changes Prior EKG: unchanged Rhythm Strip: normal sinus rhythm Departure Departure Disposition: STILL A PATIENT Condition: Stable Clinical Impression Primary Impression: UTI (urinary tract infection) Qualifiers: Urinary tract infection type: catheter-associated UTI Indwelling urinary catheter type: cystostomy catheter Encounter type: initial encounter Qualified Codes: T83.510A - Infection and inflammatory reaction due to cystostomy catheter, initial encounter; N39.0 - Urinary tract infection, site not specified Secondary Impressions: Altered mental status, unspecified Qualifiers: Altered mental status type: delirium Qualified Code: R41.0 - Disorientation, unspecified Bronchitis Referrals: MICHELA PINON,GLENN Espinosa (PCP/Family) Departure Forms: Customer Survey General Discharge Information Admission Note Spoke With: SHARLENE PINEDA MD Documentation of Exam: Documentation of any treatments & extenuating circumstances including Concerns Regarding Discharge (functional status, medication knowledge or non-compliance, living conditions, etc.) that warrant an admission rather than observation: IV antibiotics follow cultures serial lab exam medication adjustment beta agonist nebs continuing care discharge planning Critical Care Note Critical Care Note Critical Care Time: non-applicable
[2017-05-14 22:13] LABS: ABSOLUTE BASOPHIL COUNT 0.1 /CUMM (0.0-0.2); ABSOLUTE EOSINOPHIL COUNT 0.5 /CUMM (0.0-0.7); ABSOLUTE GRANULOCYTE CT 4.7 /CUMM (1.4-6.5); ABSOLUTE LYMPH COUNT 3.5 /CUMM (1.2-3.4); BASOPHIL % 0.6 % (0.0-2.0); EOSINOPHIL % 5.6 % (0-5); HEMATOCRIT 41.1 % (42-52); MEAN CORPUSCULAR HGB 28.2 PG (27.0-31.0); MEAN CORPUSCULAR HGB CONC 32.5 G/DL (33.0-37.0); MEAN CORPUSCULAR VOLUME 86.8 FL (80.0-94.0); MEAN PLATELET VOLUME 8.7 FL (7.4-10.4); PLATELET COUNT 231 /CUMM (130-400); RBC DISTRIBUTION WIDTH 14.5 % (11.5-14.5); RED BLOOD CELL CT 4.74 /CUMM (4.70-6.10); WHITE BLOOD CELL COUNT 9.8 /CUMM (4.8-10.8)
--- NOTE | 2017-05-14 22:15 | RADIOLOGY REPORT ---
EXAMINATION: XR PORTABLE CHEST CLINICAL INFORMATION: Cough and SOB. COMPARISON: None TECHNIQUE: Portable frontal view of the chest was obtained. FINDINGS: Both lungs are hyperinflated but clear of acute process.. The heart size and pulmonary vascularity is normal. No gross bony abnormality seen. IMPRESSION: Unremarkable chest exam.
[2017-05-14] MEDS ORDERED: TRAZODONE HCL50 M1 PO (22:28)
--- NOTE | 2017-05-14 22:45 | NUR ---
DR GILL AT BEDSIDE DISCUSSING RESULTS
--- NOTE | 2017-05-14 23:16 | NUR ---
2ND IV ACCESS ESTABLISHED, #20 RFA PT MEDICATED WITH IV ROCEPHIN PER ORDERS NIECE IN ROOM WHO IS ALSO POA WOULD LIKE MD STAFF TO KNOW THAT THE TRAZADONE ON THE MEDICATION LIST WAS ONLY PRESCRIBED YESTERDAY TO HELP PATIENT WITH SLEEPING BUT IT'S THE COUGHING THAT HAS KEPT HIM FROM SLEEPING AND SINCE HE IS NOW BEING TREATED FOR THE COUGHING HE SHOULDN'T NEED THE TRAZODONE SO SHE WOULD LIKE THE MEDICATION CANCELLED. REPORT GIVEN TO PARISH QIU.
--- NOTE | 2017-05-14 23:22 | History & Physical ---
[facility]ON PINON,[facility] [place] 05/14/17 2321: General Information and HPI MD Statement: I have seen and personally examined CLARIBEL VERNON and documented this H&P. The patient is a 87 year old M who presented with a patient stated chief complaint of generalized weakness. Source of Information: patient, family, old records Exam Limitations: no limitations History of Present Illness: Mr. Vernon is a 87 y/o M with PMHx of BPH c/b urinary retention s/p suprapubic catheter placement, TIA/CVA and HTN who presents from assisted living facility with progressive weakness, confusion, dark urine and dry cough. History is provided by family members as well as business services clerk from the assisted living facility at bedside. For the past few days leading up to current presentation, patient started having intermittent episodes of confusion, manifested as saying "stuff that does not make sense" and "repeating the same thing over and over again" per his business services clerk. He has been increasingly weak during this time as well. At his baseline, patient is able to move from the bed to the rolling walker however he now requires 2-person assistance. According to his business services clerk, patient's fluid intake has been adequate, however patient notes decreased appetite. Patient has also been noted to have dark urine recently. On 02/02, suprapubic catheter was placed for urinary retention in the setting of BPH. On 04/16, patient presented to the ED with hematuria and dysuria, was found to have a UTI with urine cultures later growing Klebsiella pneumoniae and Pseudomonas aeruginosa both sensitive to ciprofloxacin. He was discharged home on a 7-day course of ciprofloxacin which he has completed. One week prior to current presentation suprapubic catheter was changed. Patient notes "terrible" pain in his penis which has been ongoing for some time, as well as abdominal pain most pronounced around the umbilicus. Recently he has had increased urine output from the penis. Patient has a chronic dry cough at baseline which has been ongoing for the past few years, however over the past few days it has become more severe, although it remains nonproductive. He endorses shortness of breath as well. He has also been experiencing nasal congestion and rhinorrhea during this time. Of note, patient has had two episodes of choking recently and has been placed on a chopped diet. There are no sick contacts, fever or chills. Patient's business services clerk has noticed that the swelling in his legs has increased recently. Patient uses two pillows to sleep at baseline which is unchanged. He denies paroxysmal nocturnal dyspnea. 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 self Services at Home: Home Health Aide Primary Language: Greek Smoking Status: Former Smoker (Smoked 20 Yrs, Quit 20 Yrs Ago) ETOH Use: denies use Illicit Drug Use: denies illicit drug use Living Will? yes Power of Power Lineman Technician/HCP? yes Name of POA/HCP: Ankita Smart Functional Ability ADLs Independent: dressing, eating, toileting, bathing. Ambulation: walker IADLs Independent: finances, telephone. Needs Assist: housework, transportation. 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 Denies: chills, fever. EENTM: Reports: nasal congestion. Cardiovascular: Reports: peripheral edema. Denies: chest pain, palpitations. Respiratory: Reports: cough, short of breath. Denies: sputum production. GI: Reports: abdominal pain. Denies: nausea, vomiting. Genitourinary: Reports: dysuria, pain. Musculoskeletal: Reports: no symptoms. Skin: Reports: no symptoms. Neurological/Psychological: Reports: confusion. Hematologic/Endocrine: Reports: no symptoms. Immunologic/Allergic: Reports: no symptoms. All Other Systems: Reviewed and Negative Exam & Diagnostic Data Last 24 Hrs of Vital Signs/I&O Vital Signs Date Time Temp Pulse Resp B/P B/P Pulse O2 O2 Flow FiO2 Mean Ox Delivery Rate 05/14 2303 97.2 85 18 141/73 93 Room Air 05/14 2232 94 Room Air Room Air 05/14 2110 97.7 61 20 140/90 97 Aerosol Mask Intake & Output 05/15 0800 05/15 0000 05/14 1600 Intake Total Output Total Balance Patient 68.039 kg Weight Weight Reported by Patient Measurement Method Physical Exam General Appearance Alert, Oriented X3, No Acute Distress Skin No Rashes Skin Temp/Moisture Exam: Warm/Dry Sepsis Skin Exam (color): Normal for Ethnicity HEENT Atraumatic, Dry Mucous Membranes Neck Supple Cardiovascular Regular Rate, Normal S1, Normal S2, No Murmurs, Gallops, Rubs Lungs Clear to Auscultation Abdomen Soft, No Tenderness, Positive Bowel Sounds, Suprapubic Catheter Site Without Erythema or Swelling Extremities No Clubbing, No Cyanosis, Bilateral Lower Extremities with 1+ Pitting Edema Last 24 Hrs of Labs/Wilman: Laboratory Tests 05/15/17 0643: Anion Gap 7, Estimated GFR > 60, BUN/Creatinine Ratio 29.0 H, Troponin I 0.03, CBC w Diff NO MAN DIFF REQ, RBC 4.17 L, MCV 86.6, MCH 28.6, RDW 14.6 H, MPV 9.0, Gran % 54.2, Lymphocytes % 28.9, Monocytes % 9.3, Eosinophils % 6.9 H, Basophils % 0.7, Absolute Granulocytes 4.8, Absolute Lymphocytes 2.6, Absolute Monocytes 0.8 H, Absolute Eosinophils 0.6, Absolute Basophils 0.1, PUBS MCHC 33.0 05/15/17 0641: Troponin I Cancelled 05/15/17 0033: Lactic Acid Cancelled Diagnostic Data EKG Results Sinus tachycardia HR 109 Ventricular bigeminy 1st degree AV block SD 264 QTc 437 CXR Results Unremarkable chest exam. Assessment/Plan Assessment: Mr. Vernon is a 87 y/o M with PMHx of BPH c/b urinary retention s/p suprapubic catheter placement, TIA/CVA and HTN who presents with progressive weakness, confusion, dark urine and dry cough. #Complicated UTI: Meets criteria for complicated UTI given suprapubic catheter that was placed for urinary retention in the setting of BPH (02/02) and later exchanged one week prior to current presentation. Diagnosed with UTI on 04/16 with urine cultures growing Klebsiella pneumoniae and Pseudomonas aeruginosa sensitive to ciprofloxacin and completed 1 week of oral ciprofloxacin. Currently afebrile and without leukocytosis but with persistent penile and lower abdominal pain which warrants treatment for UTI. S/p 1 dose of IV ceftriaxone in the ED. * Admit to General Medicine. * Urology consulted. Appreciate their recs. * Start ceftazidime 1 g IV Q8H. * Check urine and blood cultures. * Consider discontinuing antibiotics if urine cultures come back negative and patient remains afebrile. #CONNOR: BUN 36 and creatinine 1.3 on admission, with a BUN/Cr >20 suggestive of dehydration. Current baseline is unknown but it was 0.9-1.2 in 2016. Of note, it was 1.4 on 04/16 during his presentation for UTI, which likely represented CONNOR as well. * Administer 1 L bolus of normal saline. * Repeat BMP in the AM especially since patient is receiving contrast which may affect kidney function. * Avoid nephrotoxic medications. #Nonproductive cough/SOB: Etiology is unclear but could be secondary to upper respiratory infection given association with nasal congestion and rhinorrhea, although there is also high suspicion for PE as patient is relatively immobile. No focal consolidation on CXR, fever or leukocytosis to suggest pneumonia. Has recently been started on a chopped diet in light of recent choking episodes. * Check CTA Chest to rule out PE. * TRC and nebs. * Chopped and thin liquids diet. Swallow evaluation in the AM. * Robitussin PRN for cough. #Generalized weakness/deconditioning: Could represent age-related progressive decline in performance status with possible contribution from UTI or upper respiratory tract infection. * PT evaluation. * Possible discharge to [facility] pending eval. * Check TSH, free T4, vitamin D and vitamin B12. #Ventricular bigeminy: Present on admission EKG. K and Mg WNL. Troponin negative. * Repeat EKG and troponin in the AM. * Check BMP and replete to K >4 and Mg >2. #BPH: Takes finasteride 5 mg PO daily and silodosin 5 mg PO daily. * Continue wbqnn-vk-fxzcyvubp finasteride 5 mg PO daily. * Tamsulosin 0.4 mg PO daily while inpatient as as silodosin is not on formulary. #HLD: Takes lovastatin 40 mg PO daily. * Atorvastatin 10 mg PO daily while inpatient as lovastatin is not on formulary. * Continue hmets-lh-muqkpytfk aspirin 81 mg PO daily. #GERD: * Continue herpg-kd-dpnejiytd famotidine 20 mg PO daily. #Peripheral neuropathy: * Continue klfbk-ur-oxhsnllbp gabapentin 300 mg PO BID. Diet: Regular - Chopped and thin liquids Pain: Morphine 1 mg IV Q6H PRN for severe pain (scale 7-10) Tylenol 1 g IV Q6H PRN for moderate pain (scale 4-6) Tylenol 650 mg PO Q6H PRN for mild pain (scale 1-3) DVT PPx: HSQ and ALPs CODE: DNR/DNI As Ranked By This Provider Problem List: 1. CONNOR (acute kidney injury) 2. BPH (benign prostatic hyperplasia) 3. Complicated UTI (urinary tract infection) 4. HLD (hyperlipidemia) 5. GERD (gastroesophageal reflux disease) 6. Peripheral neuropathy 7. Ventricular bigeminy 8. Generalized weakness Core Measures/Miscellaneous Acute Coronary Syndrome ACS Diagnosis: No Cerebrovascular Accident CVA/TIA Diagnosis: No Congestive Heart Failure CHF Diagnosis: No VTE (View Protocol) VTE Risk Factors: Acute medical illness, Age > 40, Immobility, paresis [facility] prophylaxis d/t: No contraindications No VTE Pharm Prophylaxis d/t: No contraindications VTE Diagnosis: No VTE Type: NONE VTE Confirmed by (Test): NONE Sepsis (View Protocol) Severe Sepsis Present: No Septic Shock Septic Shock Present: No Miscellaneous Documentation Attending Case Discussed With: JOHN PINEDA MDJoshua Primary Care Physician: GLENN ABERNATHY MD Patient sees these Specialists Urologist Josef Pearl MD Waste Disposal Leakage Tester Martell Altamirano MD Level of Patient Care: General Medicine ARACELIS IKNG 05/15/17 0004: General Information and HPI Allergies/Medications Home Med list Aspirin (Werner Chewable Aspirin) 81 MG TAB.CHEW 1 TAB PO DAILY HEART ( Reported) Cyclobenzaprine HCl 5 MG TABLET 1 TAB PO BID MUSCLE RELAXANT (Reported) Famotidine 20 MG TABLET 1 TAB PO DAILY GI (Reported) Finasteride 5 MG TABLET 1 TAB PO DAILY PROSTATE (Reported) Gabapentin 300 MG CAPSULE 1 CAP PO BID neuropathy (Reported) Lovastatin 40 MG TABLET 1 TAB PO DAILY CHOLESTEROL (Reported) with food Polyethylene Glycol 3350 (Miralax) 119 GM POWDER 17 GM PO DAILY PRN CONSTIPATION Sennosides/Docusate Sodium (Senna S Tablet) 8.6 MG-50 MG TABLET 1 TAB PO QPM GI (Reported) Silodosin (Rapaflo) 4 MG CAPSULE 1 CAP PO QPM BPH (Reported) Resident Review Statement Resident Statement: examined this patient, discussed with paralegal internship, agreed with paralegal internship, amended to note Other Findings: This is an 87 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 He reports to have an underlying cough which has been there for a long time but in the past few days the cough has increased more in frequency and is bothering him it is dry not able to expectorate anything and denies any fevers or chills associated with this. He has no sick contact. Together with the cough he has noted runny nose but denies any sore throat or pain while swallowing. The family and the business services clerk reports that they have noted his urine is dark, more than usual appearing the way it did when he had UTI in the past and the patient reports is experiencing a burning sensation when he passes urine but denies frequent site in that most of the urine is going through his suprapubic catheter. He volunteers lower abdominal pain predominantly around the suprapubic site but covering most of the area. The business services clerk volunteers that the patient is more confused than usual doing repetitive behavior and asking thinks which does not make sense she has also noted that he is more deconditioned requiring assist of 2 to move from the bed and this has worsened in the past few days. Recently the patient has been choking on his food which hasn't necessitated him being on chopped diet. The patient is not pleased with chopped diet but understands that it's important for his airway protection. Edge Trimming Machine Operator reports that has noted swelling of the lower limbs but the patient denies any orthopnea or paroxysmal nocturnal dyspnea, for long-term have been using 2 pillows and thus what he uses without any problems. He denies any chest pain palpitation or shortness of breath, he has no nausea or vomiting though he reports decrease in appetite, he has no lightheadedness or dizziness. Vitals on arrival febrile 97.7 heart rate of 61 respiration of 20 blood pressure 140/90 97% on room air Physical exam: Alert and oriented not in any acute distress very pleasant responding to questions and interacting appropriately HEENT: Dry mucous membranes Abdomen: Normal contour moving with respiration normal bowel sounds suprapubic insertion site is clean and has no any discharges. Chest: Clear lungs bilaterally Heart: RRR, S1/2 normal no murmurs Extremities: Mild pitting edema +1 no cyanosis no clubbing LABS: H&H H&H 13.4/41.1, WBC 9.8, creatinine 1.3, lactic acid 1.7, proBNP 336 UA: Positive leukocyte Estrase, WBC more than 75 CXR unremarkable Assessment and plan This is an 87 years old gentleman with history of hypertension hyperlipidemia out to Aneurysm BPH status post suprapubic catheter who is presenting with several days of dark urine, pain during micturition, altered mental status and general deconditioning requiring assist of 2. In this elderly patient with these symptoms might signify urinary tract infection despite having normal white counts. Patient is on chopped diet to prevent choking. The patient on presentation had increased creatinine of 1.3 and the urine is positive for leukocyte esterase and pyuria with WBC more than 75. Urinary tract infection Acute kidney injury Deconditioning Swallowing difficulty on chopped diet Admit the patient to general medicine floor Vital signs every shift Patient has a growing multiple poly-resistant bacteria in urine will provide broad-spectrum coverage with Ceftazidine 1000mg Q8 IV hydration with normal saline 1000cc second bottle to run for 2 hours and then maintenance at 125 mL per hour PT evaluation Fall precautions GERD continue famotidine 20 mg daily BPH continue finasteride 5 mg daily, Silodosin 4mg Hyperlipidemia continue lovastatin 20 mg daily Patient is DNR/DNI Heparin for DVT prophylaxis Pain pathway EDWIN PINON, [facility] 05/15/17 0610: Attending MD Review Statement Attending Statement Attending MD Statement: examined this patient, discuss w/resident/PA/SAP SENIOR DEVELOPER, agreed w/resident/PA/SAP SENIOR DEVELOPER Attending Assessment/Plan: 87 yo M from assisted living, with h/o BPH/ urinary retention s/p suprapubic catheter placed February 02 2017, replaced 1 week ago, h/o HTN, HLD, TIA/CVA, levoscoliosis, cervical spinal stenosis, recently treated for UTI 2 weeks ago with Cipro, is brought in for multiple complaints episodes of confusion over the past 3 days, worsening nonproductive cough, dyspnea, poor appetite, dark urine in the suprapubic tube with some foul smell, penile pain and increased urine output from the penis. He c/o abdominal pain, but when pointed to the catheter there does not seem to be any discomfort there, he instead points at the penis. Denies fever chills, nausea, vomiting, diarrhea. Night aide was at bedside during my eval. Weakness, deconditioning with patient now being an assist of 2. Recently, patient is more immobile with developing LE edema. VSS. Labs: no leukocytosis, BUN 36, creat 1.3 (baseline 0.9-1.0), glucose 130, lactic acid normal, trop neg, UA positive with LE, WBC> 75, many bacteria. CXR neg. EKG: Sinus tachycardia, LVH, ventricular bigeminy. CTA chest: no PE, AAA 4.8 cm, upper lobe predominant emphysema, thyroid gland is heterogeneous, small right thyroid lobe calcification+. Echo (2016): EF > 65%, stage 1DD. 1. Confusion, urinary symptoms and positive UA, in the setting of suprapubic catheter for BPH. GM admit, urine culture, based on previous cultures that have grown pseudomonas and klebsiella, will initiate IV ceftaz. If urine cultures are negative and patient remains afebrile, consider discontinuing antibiotics. IV fluids. Urology consult (I spoke with Dr. Wei, confirmed plan as above). Penile pain is 2/2 bladder spasms. Continue flomax and finasteride. 2. CONNOR. IV hydration and recheck renal functions in AM. 3. Cough, URI symptoms, no evidence of pneumonia or PE. Provide TRC nebs, brendaitussin for now. Patient has been on a chopped diet for recent choking episodes, will check swallow eval in AM. Check TSH, free T4. 4. Weakness, deconditioning. PT eval, check vit D, B12. Possible need for STR. 5. Evidence of ventricular bigeminy on EKG. Please check mag and K levels and replete as needed. Check EKG and troponin in AM. DVT ppx Hep SC. DNR/I.
--- NOTE | 2017-05-15 00:30 | NUR ---
PT AID REQUESTING WATER FOR PT, CUP OF ICE WATER PROVIDED FOR PT. TOLERATED WELL.
--- NOTE | 2017-05-15 01:02 | NUR ---
DR. PINEDA TO SEE PT, CTA NOW ORDERED, PTS PERSONAL AIDE AT BEDSIDE. WILL NOT BE STAYING WITH PT.
--- NOTE | 2017-05-15 01:23 | NUR ---
REPORT TO ADORE. PT TO CT FOR CTA. THEN WILL GO TO FLOOR.
--- NOTE | 2017-05-15 01:44 | NUR ---
RETURNED FROM [facility] FLOOR CALLED FOR TRANSPORT, UNABLE WILL CALL A SIDE, SUPER CALLED PT IS AGGREVATED ABOUT "EXCUSES TO KEEP HIM HERE"
--- NOTE | 2017-05-15 03:15 | CT SCAN REPORT ---
EXAMINATION: CT ANGIOGRAM OF THE CHEST WITH AND WITHOUT CONTRAST (CT PULMONARY ANGIOGRAM FOR PE) CLINICAL INFORMATION: Shortness of breath and immobility COMPARISON: Chest x-ray 05/14/2017 TECHNIQUE: Prior to contrast administration, noncontrast localization images were obtained. Subsequently, multidetector volumetric imaging was performed from the thoracic inlet to below the diaphragms following the administration of 95 mL Optiray intravenous contrast. No contrast reaction reported. Sagittal, coronal, and MIP oblique sagittal reformatted images were obtained on the CT workstation, uploaded to PACS, and reviewed. Total exam dose-length product 502.36 mGy-cm. FINDINGS: QUALITY OF STUDY/CONTRAST BOLUS: Satisfactory PULMONARY ARTERIES: No central or segmental pulmonary emboli. THORACIC AORTA: The ascending aorta is dilated to approximately 4.8 cm. The descending thoracic aorta is tortuous. Evaluation of the aorta is limited due to the phase of postcontrast imaging. There is atherosclerotic calcification along the aorta. LUNG: There is moderate upper lobe predominant emphysema. No dense region of consolidation bilaterally. Dependent atelectasis is present in the lower lobes. PLEURA: No pleural effusion or pneumothorax. MEDIASTINUM: The thyroid gland is heterogeneous. A small right thyroid lobe calcification is noted. No mediastinal lymphadenopathy is seen. Cardiac size is within normal limits; no pericardial effusion. Coronary artery calcifications are present. No evidence of septal bowing or right heart strain. CHEST WALL/AXILLA: No axillary or internal mammary lymphadenopathy. OSSEOUS STRUCTURES: There are multiple age-indeterminate compression deformities in the lower thoracic and upper lumbar spine. UPPER ABDOMEN: Unremarkable. No reflux of contrast into the hepatic veins to suggest elevated right heart pressures. IMPRESSION: 1. No pulmonary embolus identified. 2. Ascending aortic aneurysm measuring approximately 4.8 cm. 3. Upper lobe predominant emphysema. 4. Age-indeterminate compression deformities in the lower thoracic and upper lumbar spine. VTE: negative
[2017-05-15 03:29] VITALS: BP 142/70
--- NOTE | 2017-05-15 06:11 | Admission Certification ---
Admission Certification Certification Statement - As attending physician, I certify that at the time of - admission, based on clinical presentation, severity of - symptoms, need for further diagnostic testing and - therapeutic interventions, and risk of adverse outcomes - without in-hospital treatment, in my clinical assessment, - this patient requires an acute hospital stay for a minimum - of two nights or longer. I have also considered psychsocial - factors such as support system, advanced age, financial - issues, cognitive issues, and failed out-patient treatments, - past re-admission history, safety of patient, and lack of - compliance as applicable. Specific rationale supporting this admission is: UTI, CONNOR, weakness, deconditioning.
[2017-05-15 08:33] LABS: ABSOLUTE BASOPHIL COUNT 0.1 /CUMM (0.0-0.2); ABSOLUTE EOSINOPHIL COUNT 0.6 /CUMM (0.0-0.7); ABSOLUTE GRANULOCYTE CT 4.8 /CUMM (1.4-6.5); ABSOLUTE LYMPH COUNT 2.6 /CUMM (1.2-3.4); ABSOLUTE MONOCYTE COUNT 0.8 /CUMM (0.10-0.60); BASOPHIL % 0.7 % (0.0-2.0); EOSINOPHIL % 6.9 % (0-5); GRANULOCYTE % 54.2 % (42.2-75.2); MEAN CORPUSCULAR HGB 28.6 PG (27.0-31.0); MEAN CORPUSCULAR VOLUME 86.6 FL (80.0-94.0); PLATELET COUNT 184 /CUMM (130-400); RBC DISTRIBUTION WIDTH 14.6 % (11.5-14.5); RED BLOOD CELL CT 4.17 /CUMM (4.70-6.10); WHITE BLOOD CELL COUNT 8.8 /CUMM (4.8-10.8)
[2017-05-15 09:50] LABS: HEMATOCRIT 36.1 % (42-52)
--- NOTE | 2017-05-15 11:51 | PN- Housestaff ---
LITA PINON,[facility] 05/15/17 1151: Subjective Follow-up For: Complicated UTI Subjective: Agent was seen and examined this morning, leg comfortably in bed, aborted cough spells, dry nature, not associated with fever and chills. Patient denied any abdominal pain, chest pain. He also reported urine drippling despite having the pubic catheter. V/S stable. Review of Systems Constitutional: Reports: see HPI. Objective Last 24 Hrs of Vital Signs/I&O Vital Signs Date Time Temp Pulse Resp B/P B/P Pulse O2 O2 Flow FiO2 Mean Ox Delivery Rate 05/15 0934 Room Air Room Air 05/15 0329 97.7 70 18 142/70 94 Room Air 05/15 0254 94 Room Air Room Air 05/14 2303 97.2 85 18 141/73 93 Room Air 05/14 2232 94 Room Air Room Air 05/14 2110 97.7 61 20 140/90 97 Aerosol Mask Intake & Output 05/15 1600 05/15 0800 05/15 0000 Intake Total Output Total 250 Balance -250 Output, Urine 250 Patient 68.039 kg Weight Weight Reported by Patient Measurement Method Physical Exam General Appearance: Alert, Oriented X3, Cooperative, No Acute Distress Skin: No Rashes, No Breakdown, No Significant Lesion HEENT: Atraumatic, PERRLA, EOMI, Mucous Membr. moist/pink Cardiovascular: Regular Rate, Normal S1, Normal S2, No Murmurs Lungs: Clear to Auscultation, Wheeze in RLQ Abdomen: Normal Bowel Sounds, Soft, No Tenderness, No Hepatospenomegaly, No Masses Neurological: Normal Gait, Normal Speech, Strength at 5/5 X4 Ext, Normal Tone, Sensation Intact, Cranial Nerves 3-12 NL, Reflexes 2+ Extremities: No Clubbing, No Cyanosis, No Edema, Normal Pulses, No Tenderness/ Swelling Assessment/Plan Assessment: Mr. Vernon is a 87 y/o M with PMHx of BPH c/b urinary retention s/p suprapubic catheter placement, TIA/CVA and HTN who presents with progressive weakness, confusion, dark urine and dry cough. #Complicated UTI: Meets criteria for complicated UTI given suprapubic catheter that was placed for urinary retention in the setting of BPH (02/02) and later exchanged one week prior to current presentation. Diagnosed with UTI on 04/16 with urine cultures growing Klebsiella pneumoniae and Pseudomonas aeuriginosa sensitive to ciprofloxacin and completed 1 week of oral ciprofloxacin. Currently afebrile and without leukocytosis but with persistent penile and lower abdominal pain which warrants treatmentAdmit to General Medicine. * Urology consultation was obtained, the recommendation * Continue ceftazidime 1 g IV Q8H Day#2 * Urine culture positive for gram-negative rods and gram-positive cocci * Blood culture is negative so far * Urology recommendation for oxybutynin 5 mg twice a day if patient complains of bladder spasms or urine loss by urethra #CONNOR: BUN 36 and creatinine 1.3 on admission, with a BUN/Cr >20 suggestive of dehydration. Current baseline is unknown but it was 0.9-1.2 in 2016. Of note, it was 1.4 on 04/16 during his presentation for UTI, which likely represented CONNOR as well. * Patient received 1 L bolus of normal saline, BUN and creatinine improved * Avoid nephrotoxic medications #Nonproductive cough/SOB: Etiology is unclear but could be secondary to upper respiratory infection given association with nasal congestion and rhinorrhea, although there is also high suspicion for PE as patient is relatively immobile. No focal consolidation on CXR, fever or leukocytosis to suggest pneumonia. Has recently been started on a chopped diet in light of recent choking episodes. * TRC and nebs * Chopped and thin liquids diet. Swallow evaluation is pending * Robitussin PRN for cough #Generalized weakness/deconditioning: Could represent age-related progressive decline in performance status with possible contribution from UTI or upper respiratory tract infection. * PT evaluation * Vitamin B12 normal, vitamin D low * Start vitamin D 1000 units daily #Ventricular bigeminy: Present on admission EKG. K and Mg WNL. Troponin negative. * Troponin negative, EKG no acute changes #BPH: Takes finasteride 5 mg PO daily and silodosin 5 mg PO daily. * Continue xleyk-sl-xnxqdfqhi finasteride 5 mg PO daily * Tamsulosin 0.4 mg PO daily while inpatient as as silodosin is not on formulary #HLD: Takes lovastatin 40 mg PO daily * Atorvastatin 10 mg PO daily while inpatient as lovastatin is not on formulary * Continue brrnj-xx-igkthfzxx aspirin 81 mg PO daily #GERD: * Continue zhijs-wd-nxzkosvmn famotidine 20 mg PO daily #Peripheral neuropathy: * Continue dfzbu-bi-qkrvkgjjs gabapentin 300 mg PO BID Diet: Regular - Chopped and thin liquids Problem List: 1. BPH (benign prostatic hyperplasia) 2. UTI (urinary tract infection) Pain Ratin Pain Location: NOne Pain Goal: Pain 4 or less Pain Plan: Mild pain pathway Tomorrow's Labs & Rationales: TONEY, RODRICK SETH MD,RAMIREZ 05/15/17 1313: Attending MD Review Statement Attending Statement Attending MD Statement: examined this patient, discuss w/resident/PA/EXCELSIOR MACHINE OPERATOR, agreed w/resident/PA/EXCELSIOR MACHINE OPERATOR, reviewed EMR data (avail), discussed with nursing, discussed with case mgmt, reviewed images, amended to note Attending Assessment/Plan: 67-year-old male from assisted living home, with past medical history significant for BPH/urinary retention status post suprapubic catheter which has been recently replaced about 1 week ago, history of hypertension, hyperlipidemia , TIA/CVA, scoliosis, cervical spinal stenosis and recently treated for UTI with Cipro, is being admitted to the floor with altered mental status most likely due to weakness, deconditioning, a TIA and possibly a UTI. Patient was seen and examined this morning on the bedside and was found to be alert and oriented 3. He reported that he does not has any pain or discomfort. He was started for possible UTI with IV ceftriaxone keeping in mind his previous cultures and sensitivity. His urine grew gram-negative rods and gram- positive cocci. Urology consult has been obtained. The 19 has spoken to him and he thinks that the lower abdominal pain might have been due to bladder spasms and to continue with Flomax and finasteride. His AK I has improved with IV hydration and his kidney functions are back to normal. Given his cuff he was started on TRC nebs and being kept on chopped diet for recent choking sensations. We will evaluate him for follow a valve and will get a PT consult as his baseline he needs assistance and ambulates with a wheelchair. His tubes are negative and mag and potassium levels within normal limits. We will follow the urine culture for sensitivity. We will continue the rest of his home medications and DVT prophylaxis.
--- NOTE | 2017-05-15 13:42 | Cons- Urology ---
General Information and HPI Consulting Request Date of Consult: 05/15/17 Requested By: EDWIN PINON,SHARLENE Reason for Consult: DARK URINE, HX OF UTI, GENITALIA DISCOMFORT Source of Information: patient History of Present Illness: 87 year old male with hypertension, cva, bed ridden admitted for dry cough,sob, confusion, dark urine, hx of uti. suprapubic cystostomy in january per biju Dobbins, for bph disease - on finasteride and rapaflo daily. treated with cipro for 10days on april 16 for mixed uti . occasional urine incontinence per urethra- sp tube changed 1 week ago. occasional bladder spam pain Allergies/Medications Allergies: Coded Allergies: Penicillins (RASH 02/19/16) Home Med List: Aspirin (Werner Chewable Aspirin) 81 MG TAB.CHEW 1 TAB PO DAILY HEART ( Reported) Cyclobenzaprine HCl 5 MG TABLET 1 TAB PO BID MUSCLE RELAXANT (Reported) Famotidine 20 MG TABLET 1 TAB PO DAILY GI (Reported) Finasteride 5 MG TABLET 1 TAB PO DAILY PROSTATE (Reported) Gabapentin 300 MG CAPSULE 1 CAP PO BID neuropathy (Reported) Lovastatin 40 MG TABLET 1 TAB PO DAILY CHOLESTEROL (Reported) with food Polyethylene Glycol 3350 (Miralax) 119 GM POWDER 17 GM PO DAILY PRN CONSTIPATION Sennosides/Docusate Sodium (Senna S Tablet) 8.6 MG-50 MG TABLET 1 TAB PO QPM GI (Reported) Silodosin (Rapaflo) 4 MG CAPSULE 1 CAP PO QPM BPH (Reported) Past History Medical History Neurological: CVA, peripheral neuropathy, TIA EENT: cataracts Cardiovascular: aortic aneurysm, hypertension, hyperlipidemia Respiratory: NONE Gastrointestinal: GERD Hepatic: NONE Renal: benign prost hyperplasia Musculoskeletal: chronic back pain, osteoarthritis, C5-C6 stenosis Psychiatric: NONE Endocrine: NONE Blood Disorders: NONE Cancer(s): NONE WIRE WORKER/Reproductive: NONE Surgical History Pertinent Surgical History: cataract removal (bilateral), hernia Family History Relations & Conditions If Any: MOTHER FH: cancer Psychosocial History Where Do You Live? Assisted Living Who Do You Live With? self Services at Home: Home Health Aide Primary Language: Luxembourger Smoking Status: Former Smoker (Smoked 20 Yrs, Quit 20 Yrs Ago) ETOH Use: denies use Illicit Drug Use: denies illicit drug use Living Will? yes Power of Computer Operations Manager/HCP? yes Name of POA/HCP: Ankita Carcova Functional Ability ADLs Independent: dressing, eating, toileting, bathing. Ambulation: walker IADLs Independent: finances, telephone. Needs Assist: housework, transportation. Employment History Employment: Retired Profession/Employer: [employer] Exam & Diagnostic Data Vital Signs and I&O Vital Signs Date Time Temp Pulse Resp B/P B/P Pulse O2 O2 Flow FiO2 Mean Ox Delivery Rate 05/15 1228 94 Room Air Room Air 05/15 0934 Room Air Room Air 05/15 0329 97.7 70 18 142/70 94 Room Air 05/15 0254 94 Room Air Room Air 05/14 2303 97.2 85 18 141/73 93 Room Air 05/14 2232 94 Room Air Room Air 05/14 2110 97.7 61 20 140/90 97 Aerosol Mask Intake & Output 05/15 1600 05/15 0800 05/15 0000 05/14 1600 05/14 0800 05/14 0000 Intake Total Output Total 250 Balance -250 Output, Urine 250 Patient 150 lb Weight Weight Reported by Patient Measurement Method sp tube draining light jaspreet urine no epidiymitis Assessment/Plan Assessment/Plan r/o recurrent uti i advise: hydration- bun36 creatinine 1.3 await urine culture report oxybutynin 5mg bid if further bladder spasms of pain and urine loss per urethra Consult Acknowledgment - Thank you for your consult request. Attending MD Review Statement Attending Statement Attending MD Statement: examined this patient Attending Assessment/Plan: key damon md urologist covering for dr Dylan kurtz
[2017-05-15 14:57] VITALS: BP 124/60
[2017-05-15 22:41] VITALS: BP 142/80
[2017-05-16 06:03] VITALS: BP 132/76
--- NOTE | 2017-05-16 07:32 | PN- Housestaff ---
EFRAIN PINON,ELVIA 05/16/17 0732: Subjective Follow-up For: Complicated UTI, confusion Complaints: no complaints Subjective: I followed up and examined the patient today. He was resting comfortably in bed , did not have any complaints, not in distress, suprapubic catheter in place, vitals stable overnight, no overnight issues. Of note, he was confused about his current condition, but was oriented to time, place, and person. Review of Systems Constitutional: Reports: no symptoms. Objective Last 24 Hrs of Vital Signs/I&O Vital Signs Date Time Temp Pulse Resp B/P B/P Pulse O2 O2 Flow FiO2 Mean Ox Delivery Rate 05/16 1535 Room Air Room Air 05/16 1433 98.9 73 20 142/81 95 Room Air 05/16 0942 132/70 05/16 0805 94 Room Air 05/16 0603 98.1 84 22 132/76 95 Room Air 05/16 0000 Room Air 05/15 2241 97.9 67 20 142/80 94 Room Air 05/15 1937 93 Room Air Intake & Output 05/16 1600 05/16 0800 05/16 0000 Intake Total 550 100 200 Output Total 548 915 8134 Balance -350 -550 -1300 Intake, Oral 550 100 200 Output, Urine 786 406 2264 Physical Exam General Appearance: Alert, Oriented X3, Cooperative, No Acute Distress Other Physical Findings: Skin: No Rashes, No Breakdown, No Significant Lesion HEENT: Atraumatic, PERRLA, EOMI, Mucous Membr. moist/pink Cardiovascular: Regular Rate, Normal S1, Normal S2, No Murmurs Lungs: Clear to Auscultation, no wheeze heard today Abdomen: Normal Bowel Sounds, Soft, No Tenderness, No Hepatospenomegaly, No Masses, no CVA tenderness, suprapubic cath in place draining well, with no leaking from the site or from the urethra. Neurological: Normal Speech, Strength at 5/5 X4 Ext, Normal Tone, Sensation Intact, Cranial Nerves 3-12 NL, Reflexes 2+, Gait not examined. Extremities: No Clubbing, No Cyanosis, No Edema, Normal Pulses, No Tenderness/ Swelling Current Medications: Current Medications Sig/Tiffanie Start time Last Medication Dose Route Stop Time Status Admin Acetaminophen 650 MG Q6P PRN 05/15 0245 AC PO Acetaminophen 1,000 MG Q6P PRN 05/15 0245 AC IV Albuterol Sulfate 3 ML Q4H PRN 05/15 0945 AC 05/15 INH 1219 Aspirin 81 MG DAILY 05/15 1000 AC 05/16 PO 0942 Atorvastatin Calcium 10 MG 1700 05/15 1700 AC 05/16 PO 1606 Ceftazidime 1,000 MG Q12H 05/15 0300 AC 05/16 IV 1606 Cholecalciferol 1,000 IU DAILY 05/15 1610 AC 05/16 PO 0941 Famotidine 20 MG DAILY 05/15 1000 AC 05/16 PO 0941 Finasteride 5 MG DAILY 05/15 1000 AC 05/16 PO 0941 Gabapentin 300 MG BID 05/15 1000 AC 05/16 PO 0942 Guaifenesin 10 ML Q6P PRN 05/15 0645 AC 05/16 PO 0343 Heparin Sodium 5,000 UNIT Q8 05/15 0600 AC 05/16 (Porcine) SC 1606 Morphine Sulfate 1 MG Q6PRN PRN 05/15 0245 DC IV Oxybutynin Chloride 5 MG BID PRN 05/15 1615 AC PO Polyethylene Glycol 17 GM DAILY NEEDED PRN 05/15 0045 AC PO Senna/Docusate Sodium 1 TAB QPM 05/15 2200 AC 05/15 PO 2218 Tamsulosin HCl 0.4 MG DAILY 05/15 1000 AC 05/16 PO 0942 Last 24 Hrs of Lab/Wilman Results Last 24 Hrs of Labs/Mics: Laboratory Tests 05/16/17 0716: Anion Gap 8, Estimated GFR > 60, BUN/Creatinine Ratio 18.9, CBC w Diff NO MAN DIFF REQ, RBC 4.12 L, MCV 87.4, MCH 28.6, RDW 14.7 H, MPV 8.9, Gran % 54.1, Lymphocytes % 28.7, Monocytes % 7.5, Eosinophils % 9.3 H, Basophils % 0.4, Absolute Granulocytes 4.4, Absolute Lymphocytes 2.3, Absolute Monocytes 0.6, Absolute Eosinophils 0.8, Absolute Basophils 0, PUBS MCHC 32.7 L Assessment/Plan Assessment: Mr. Vernon is a 87 y/o M with PMHx of BPH c/b urinary retention s/p suprapubic catheter placement, TIA/CVA and HTN who presents with progressive weakness, confusion, dark urine and dry cough. #Complicated UTI: Meets criteria for complicated UTI given suprapubic catheter that was placed for urinary retention in the setting of BPH (02/02) and later exchanged one week prior to current presentation. Prior h/o UTI with Klebsiella pneumoniae and Pseudomonas aeuriginosa sensitive to ciprofloxacin. He was on oral ciprofloxacin for 1 week prior to admission. He has remained afebrile, and no leukocytosis. * Urology consultation appreciated. * Continue ceftazidime 1 g IV Q8H Day#2 (Ceftriazone for 1 day before this) * Urine culture positive for Pseudomonas sensitive to ceftazidime but resistant to ciprofloxacin. Gram-positive cocci not identified yet. * Blood culture is negative so far. * Continuing Oxybutynin 5 mg twice a day PRN for bladder spasms or urine incontinence via urethra, which has not been required so far. #CONNOR: BUN 36 and creatinine 1.3 on admission, with a BUN/Cr >20 suggestive of dehydration. Currently BUN 17/creatinine 0.9, BUN/creatinine ratio 18.9. Improved. * Avoid nephrotoxic medications * Continue suprapubic catheterization. #Nonproductive cough/SOB: Etiology is unclear but could be secondary to upper respiratory infection given association with nasal congestion and rhinorrhea, although there is also high suspicion for PE as patient is relatively immobile. No focal consolidation on CXR, fever or leukocytosis to suggest pneumonia. Has recently been started on a chopped diet in light of recent choking episodes. * TRC and nebs * Regular diet per swallow evaluation today. * Robitussin PRN for cough #Generalized weakness/deconditioning: Could represent age-related progressive decline in performance status with possible contribution from UTI or upper respiratory tract infection. * PT evaluation: Recommends short-term rehabilitation * Vitamin B12 normal, vitamin D low * Continue Vitamin D 1000 units daily #Ventricular bigeminy: Present on admission EKG. K and Mg WNL. Troponin negative. * Troponin negative, EKG no acute changes #BPH: Takes finasteride 5 mg PO daily and silodosin 5 mg PO daily. * Continue kgerl-ft-gwspvhdrg finasteride 5 mg PO daily * Tamsulosin 0.4 mg PO daily while inpatient as as silodosin is not on formulary #HLD: Takes lovastatin 40 mg PO daily * Atorvastatin 10 mg PO daily while inpatient as lovastatin is not on formulary * Continue kfnvk-xo-ssmvwbmlg aspirin 81 mg PO daily #GERD: * Continue fgyqm-ha-gwjprxtuj famotidine 20 mg PO daily #Peripheral neuropathy: * Continue irdto-jm-ozmcwynfg gabapentin 300 mg PO BID Diet: Regular thins. DVT ppx: SQ Heparin Code status: DNR/DNI Problem List: 1. UTI (urinary tract infection) 2. CONNOR (acute kidney injury) 3. HLD (hyperlipidemia) 4. GERD (gastroesophageal reflux disease) 5. Ventricular bigeminy 6. Generalized weakness Pain Ratin Pain Location: - Pain Goal: Pain 4 or less Pain Plan: prn Tomorrow's Labs & Rationales: - wait for urine reports JESSICA GUTIERREZ MD 05/16/17 1143: Attending MD Review Statement Attending Statement Attending MD Statement: examined this patient, discuss w/resident/PA/RIPPLER, agreed w/resident/PA/RIPPLER, reviewed EMR data (avail), discussed with nursing, discussed with case mgmt, reviewed images, amended to note Attending Assessment/Plan: Patient seen and examined, still somewhat confused. Patient is AAO 3 though but could not tell me exactly the reason he has been hospitalized. He denies any pain currently. Vital Signs Date Time Temp Pulse Resp B/P B/P Pulse O2 O2 Flow FiO2 Mean Ox Delivery Rate 05/16 0942 132/70 05/16 0805 94 Room Air 05/16 0603 98.1 84 22 132/76 95 Room Air 05/16 0000 Room Air 05/15 2241 97.9 67 20 142/80 94 Room Air 05/15 1937 93 Room Air 05/15 1457 98.2 83 18 124/60 93 05/15 1228 94 Room Air Room Air on exam; aox3, nad. cv; s1,s2, rrr resp; clear abd; soft, nt, bs+, + suprapubic cath. ext; no edema. Laboratory Tests 05/16 0716 Chemistry Sodium (137 - 145 mmol/L) 137 Potassium (3.5 - 5.1 mmol/L) 4.1 Chloride (98 - 107 mmol/L) 107 Carbon Dioxide (22 - 30 mmol/L) 21 L Anion Gap (5 - 16) 8 BUN (9 - 20 mg/dL) 17 Creatinine (0.7 - 1.2 mg/dL) 0.9 Estimated GFR (>60 ml/min) > 60 BUN/Creatinine Ratio (7 - 25 %) 18.9 Hematology CBC w Diff NO MAN DIFF REQ WBC (4.8 - 10.8 /CUMM) 8.1 RBC (4.70 - 6.10 /CUMM) 4.12 L Hgb (14.0 - 18.0 G/DL) 11.8 L Hct (42 - 52 %) 36.0 L MCV (80.0 - 94.0 FL) 87.4 MCH (27.0 - 31.0 PG) 28.6 RDW (11.5 - 14.5 %) 14.7 H Plt Count (130 - 400 /CUMM) 184 MPV (7.4 - 10.4 FL) 8.9 Gran % (42.2 - 75.2 %) 54.1 Lymphocytes % (20.5 - 51.1 %) 28.7 Monocytes % (1.7 - 9.3 %) 7.5 Eosinophils % (0 - 5 %) 9.3 H Basophils % (0.0 - 2.0 %) 0.4 Absolute Granulocytes (1.4 - 6.5 /CUMM) 4.4 Absolute Lymphocytes (1.2 - 3.4 /CUMM) 2.3 Absolute Monocytes (0.10 - 0.60 /CUMM) 0.6 Absolute Eosinophils (0.0 - 0.7 /CUMM) 0.8 Absolute Basophils (0.0 - 0.2 /CUMM) 0 PUBS MCHC (33.0 - 37.0 G/DL) 32.7 L A/P: 87 y/o M with pmh sig for BPH c/b urinary retention s/p suprapubic catheter placement, TIA/CVA and HTN admitted with confusion, generalized weakness likely secondary to urinary tract infection which is associated with a suprapubic catheter. Currently patient growing Pseudomonas as well as gram-positive cocci. Identification of gram-positive cocci is not finalized yet. Currently patient treated with ceftaz. Pseudomonas is sensitive to ceftaz but resistant to Cipro. Contusion is improving but not completely back to baseline yet. Patient has been seen by urology. Suprapubic tube was changed about a week ago. Chest CT negative for pulmonary embolism. Next line continue current medications and follow up on final urine cultures. PT recommends rehabilitation. Patient on heparin subcutaneous for DVT prophylaxis.
[2017-05-16 08:13] LABS: ABSOLUTE BASOPHIL COUNT 0 /CUMM (0.0-0.2); ABSOLUTE EOSINOPHIL COUNT 0.8 /CUMM (0.0-0.7); ABSOLUTE GRANULOCYTE CT 4.4 /CUMM (1.4-6.5); ABSOLUTE LYMPH COUNT 2.3 /CUMM (1.2-3.4); ABSOLUTE MONOCYTE COUNT 0.6 /CUMM (0.10-0.60); BASOPHIL % 0.4 % (0.0-2.0); EOSINOPHIL % 9.3 % (0-5); GRANULOCYTE % 54.1 % (42.2-75.2); MEAN CORPUSCULAR HGB 28.6 PG (27.0-31.0); MEAN CORPUSCULAR HGB CONC 32.7 G/DL (33.0-37.0); MEAN CORPUSCULAR VOLUME 87.4 FL (80.0-94.0); MEAN PLATELET VOLUME 8.9 FL (7.4-10.4); PLATELET COUNT 184 /CUMM (130-400); RBC DISTRIBUTION WIDTH 14.7 % (11.5-14.5); RED BLOOD CELL CT 4.12 /CUMM (4.70-6.10); WHITE BLOOD CELL COUNT 8.1 /CUMM (4.8-10.8)
--- NOTE | 2017-05-16 11:48 | Discharge Summary ---
Visit Information Visit Dates Admission Date: 05/14/17 Discharge Date: 05/18/2017 Hospital Course Course Attending Physician: Franklin Bah MD Primary Care Physician: GLENN ABERNATHY MD Hospital Course: 87 yo M from assisted living, with h/o BPH/ urinary retention s/p suprapubic catheter placed February 02 2017, replaced 1 week ago, h/o HTN, HLD, TIA/CVA, levoscoliosis, cervical spinal stenosis, recently treated for UTI with Cipro, brought in for episod of confusion and complains of abdominal pain. On admission he was afebrile w/o leukocytosis. Patient also has had increasing need for assisstance due to his recent admission and deconditioned physical capacity. Other pertinent findings on admission were BUN 36, creat 1.3 (baseline 0.9-1.0), glucose 130, lactic acid normal, trop neg UA positive with LE, WBC> 75, many bacteria. CXR neg. EKG: Sinus tachycardia, LVH, ventricular bigeminy. CTA chest: no PE, AAA 4.8 cm, upper lobe predominant emphysema, thyroid gland is heterogeneous, small right thyroid lobe calcification+. Echo (2016): EF > 65% , stage 1DD. Issues that has been taken care of during this admission: 1. Confusion: ACCORDING to patient kentrell, patient has had intermittent confusion recently, however, his current level of confusion seems to be worsened than what he had before. Polypharmacy, dehydration, and UTI (infection) was considered to be the cause of his symptomatology. Patient was treated with supportive therapy, medication list was reviewed, and reversible causes of confusion (electrolytes deficit, constipation, and UTI) were treated properly. After receiving the aforementioned care for few days, patient mentation improved. Urine Cx grew Pseudomonas SPP. and MRSA. Instead of adding another Abx to his regimen, medical team curb sided the ID specialist with one question regarding the proper discharge Abx for D/C. ID specialist recommeneded keeping the patient 24 hours off Abx as it seems that ptient's Urine Cx maybe an longstanding colonzation of his system. Patient did very well off Abx and was discharged to STR. 2. CONNOR. IV hydration. Resolved. 3. Weakness, deconditioning. PT eval recommended STR. Patient was D/C to STR for physical conditioning. Allergies: Coded Allergies: Penicillins (RASH 02/19/16) Disposition Summary Disposition Principal Diagnosis: Confusion amd UTI Additional Diagnosis: deconditioning Discharge Disposition: SNF Discharge Instructions General Discharge Information Code Status: Do Not Resucitate/Intubat Patient's Diet: heart healthy Patient's Activity: linited needs assisstance Follow-Up Instructions/Appts: with your PCP post discharge Medications at Discharge Discharge Medications: Stop taking the following medications: Cyclobenzaprine HCl (Cyclobenzaprine HCl) 5 MG TABLET ORAL TWICE DAILY Continue taking these medications: Lovastatin (Lovastatin) 40 MG TABLET 1 Tablet ORAL DAILY Instructions: with food Comments: Last Taken: 05/18/17 Time: 1730 Gabapentin (Gabapentin) 300 MG CAPSULE 1 Capsule ORAL TWICE DAILY Qty = 30 Comments: Last Taken: 05/18/17 Time: 1040 AM Silodosin (Rapaflo) 4 MG CAPSULE 1 Capsule ORAL Every night Qty = 30 Comments: NOT GIVEN IN HOSPITAL Polyethylene Glycol 3350 (Miralax) 119 GM POWDER 17 Gram ORAL DAILY as needed for CONSTIPATION Qty = 1 Comments: NOT GIVEN IN HOSPITAL Aspirin (Werner Chewable Aspirin) 81 MG TAB.CHEW 1 Tablet ORAL DAILY Comments: Last Taken: 05/18/17 Time: 1040 AM Finasteride (Finasteride) 5 MG TABLET 1 Tablet ORAL DAILY Qty = 30 Comments: Last Taken: 05/18/17 Time: 1040 AM Famotidine (Famotidine) 20 MG TABLET 1 Tablet ORAL DAILY Comments: Last Taken: 05/18/17 Time: 1040 AM Sennosides/Docusate Sodium (Senna S Tablet) 8.6 MG-50 MG TABLET 1 Tablet ORAL Every night Comments: Last Taken: 05/17/17 Time: 9:46 PM Start taking the following new medications: Docusate Sodium (Docusate Sodium) 100 MG CAPSULE 200 Milligram ORAL DAILY as needed for CONSTIPATION Qty = 30 No Refills Comments: Last Taken: 05/18/17 Time: 1040 Cholecalciferol (Vitamin D3) 1,000 UNIT TABLET 1,000 International Unit ORAL DAILY Qty = 30 No Refills Comments: Last Taken: 05/18/17 Time:1040 Copies To: MICHELA PINON,GLENN Ramirez MD Review Statement Other Findings: PATIENT: CLARIBEL SAINI PRESENT AGE: 87 PATIENT ACCOUNT NO: [id number] : 30 LOCATION: [facility] ORDERING PHYSICIAN: ELA KAPOOR MD SERVICE DATE: 05/15/17 EXAM TYPE: CAT - CTA CHEST-PULMONARY EMBOLISM EXAMINATION: CT ANGIOGRAM OF THE CHEST WITH AND WITHOUT CONTRAST (CT PULMONARY ANGIOGRAM FOR PE) CLINICAL INFORMATION: Shortness of breath and immobility COMPARISON: Chest x-ray 05/14/2017 TECHNIQUE: Prior to contrast administration, noncontrast localization images were obtained. Subsequently, multidetector volumetric imaging was performed from the thoracic inlet to below the diaphragms following the administration of 95 mL Optiray intravenous contrast. No contrast reaction reported. Sagittal, coronal, and MIP oblique sagittal reformatted images were obtained on the CT workstation, uploaded to PACS, and reviewed. Total exam dose-length product 502.36 mGy-cm. FINDINGS: QUALITY OF STUDY/CONTRAST BOLUS: Satisfactory PULMONARY ARTERIES: No central or segmental pulmonary emboli. THORACIC AORTA: The ascending aorta is dilated to approximately 4.8 cm. The descending thoracic aorta is tortuous. Evaluation of the aorta is limited due to the phase of postcontrast imaging. There is atherosclerotic calcification along the aorta. LUNG: There is moderate upper lobe predominant emphysema. No dense region of consolidation bilaterally. Dependent atelectasis is present in the lower lobes. PLEURA: No pleural effusion or pneumothorax. MEDIASTINUM: The thyroid gland is heterogeneous. A small right thyroid lobe calcification is noted. No mediastinal lymphadenopathy is seen. Cardiac size is within normal limits; no pericardial effusion. Coronary artery calcifications are present. No evidence of septal bowing or right heart strain. CHEST WALL/AXILLA: No axillary or internal mammary lymphadenopathy. OSSEOUS STRUCTURES: There are multiple age-indeterminate compression deformities in the lower thoracic and upper lumbar spine. UPPER ABDOMEN: Unremarkable. No reflux of contrast into the hepatic veins to suggest elevated right heart pressures. IMPRESSION: 1. No pulmonary embolus identified. 2. Ascending aortic aneurysm measuring approximately 4.8 cm. 3. Upper lobe predominant emphysema. 4. Age-indeterminate compression deformities in the lower thoracic and upper lumbar spine. VTE: negative DICTATED BY: PAWEL MILLER MD DATE/TIME DICTATED:05/15/17301 BABY DOCTOR:CORTEZ DATE/TIME TRANSCRIBED:05/15/17301 CONFIDENTIAL, DO NOT COPY WITHOUT APPROPRIATE AUTHORIZATION. <Electronically signed in Other Vendor System> SIGNED BY: PAUL PINON,PAWEL 05/15/17 031
[2017-05-16 14:33] VITALS: BP 142/81
[2017-05-16 23:04] VITALS: BP 159/92
--- NOTE | 2017-05-16 23:27 | NUR ---
NURSE NOTE: PT REFUSING TO BE CHANGED TO SIZEWISE BED. SAID HE WILL THINK ABOUT IT TOMORROW. WILL LET DAY NURSE KNOW.
[2017-05-17 05:10] VITALS: BP 148/76
--- NOTE | 2017-05-17 07:12 | PN- Housestaff ---
EFRAIN PINON,ELVIA 05/17/17 0712: Subjective Follow-up For: Complicated UTI, confusion Complaints: no complaints Subjective: I followed up and examined the patient today. She is resting comfortably in his bed, but is not in distress, his mentation appears to be much better than yesterday. He is not confused. His vitals have remained stable, no overnight issues. Review of Systems Constitutional: Reports: no symptoms. Objective Last 24 Hrs of Vital Signs/I&O Vital Signs Date Time Temp Pulse Resp B/P B/P Pulse O2 O2 Flow FiO2 Mean Ox Delivery Rate 05/17 1411 98.4 90 20 148/68 93 Room Air 05/17 1255 94 Room Air 05/17 1202 Room Air Room Air 05/17 1103 148/90 05/17 0510 98.0 62 16 148/76 93 Room Air 05/17 0000 Room Air 05/16 2304 98.0 83 20 159/92 91 Room Air 05/16 2123 100 Room Air Room Air 05/16 1535 Room Air Room Air 05/16 1433 98.9 73 20 142/81 95 Room Air Intake & Output 05/17 1600 05/17 0800 05/17 0000 Intake Total 600 240 600 Output Total 716 009 4621 Balance 0 -560 -750 Intake, Oral 600 240 600 Output, Urine 585 281 4411 Physical Exam General Appearance: Alert, Oriented X3, Cooperative, No Acute Distress Other Physical Findings: Skin: No Rashes, No Breakdown, No Significant Lesion HEENT: Atraumatic, PERRLA, EOMI, Mucous Membr. moist/pink Cardiovascular: Regular Rate, Normal S1, Normal S2, No Murmurs Lungs: Clear to Auscultation, no wheeze heard today Abdomen: Normal Bowel Sounds, Soft, No Tenderness, No Hepatospenomegaly, No Masses, no CVA tenderness, suprapubic cath in place draining well, with no leaking from the site or from the urethra. Neurological: Normal Speech, Strength at 5/5 X4 Ext, Normal Tone, Sensation Intact, Cranial Nerves 3-12 NL, Reflexes 2+, Gait not examined. Extremities: No Clubbing, No Cyanosis, No Edema, Normal Pulses, No Tenderness/ Swelling Current Medications: Current Medications Sig/Tiffanie Start time Last Medication Dose Route Stop Time Status Admin Acetaminophen 650 MG Q6P PRN 05/15 0245 AC PO Acetaminophen 1,000 MG Q6P PRN 05/15 0245 AC IV Albuterol Sulfate 3 ML Q4H PRN 05/15 0945 AC 05/16 INH 2123 Aspirin 81 MG DAILY 05/15 1000 AC 05/17 PO 1103 Atorvastatin Calcium 10 MG 1700 05/15 1700 AC 05/16 PO 1606 Bisacodyl 10 MG DAILY PRN 05/17 0830 AC OH Ceftazidime 1,000 MG Q12H 05/15 0300 AC 05/17 IV 0315 Cholecalciferol 1,000 IU DAILY 05/15 1610 AC 05/17 PO 1102 Docusate Sodium 200 MG DAILY 05/17 1000 AC 05/17 PO 1103 Famotidine 20 MG DAILY 05/15 1000 AC 05/17 PO 1102 Finasteride 5 MG DAILY 05/15 1000 AC 05/17 PO 1102 Gabapentin 300 MG BID 05/15 1000 AC 05/17 PO 1102 Guaifenesin 10 ML Q6P PRN 05/15 0645 AC 05/16 PO 0343 Heparin Sodium 5,000 UNIT Q8 05/15 0600 AC 05/17 (Porcine) SC 1344 Oxybutynin Chloride 5 MG BID PRN 05/15 1615 AC PO Polyethylene Glycol 17 GM DAILY NEEDED PRN 05/15 0045 AC PO Senna/Docusate Sodium 1 TAB QPM 05/15 2200 AC 05/16 PO 2041 Tamsulosin HCl 0.4 MG DAILY 05/15 1000 AC 05/17 PO 1103 Trimethoprim/ 1 TAB BID 05/17 1329 AC Sulfamethoxazole PO 05/23 2300 Assessment/Plan Assessment: Mr. Vernon is a 87 y/o M with PMHx of BPH c/b urinary retention s/p suprapubic catheter placement, TIA/CVA and HTN who presents with progressive weakness, confusion, dark urine and dry cough. #Complicated UTI: Meets criteria for complicated UTI given suprapubic catheter that was placed for urinary retention in the setting of BPH (02/02) and later exchanged one week prior to current presentation. Prior h/o UTI with Klebsiella pneumoniae and Pseudomonas aeuriginosa sensitive to ciprofloxacin. He was on oral ciprofloxacin for 1 week prior to admission. He has remained afebrile, and no leukocytosis. * Urology consultation appreciated. * Urine culture positive for Pseudomonas sensitive to ceftazidime but resistant to ciprofloxacin. Also MRSA identified today, sensitive to Bactrim, Vancomycin. * Continue Ceftazidime 1 g IV Q8H Day#3, started on Bactrim DS PO BID today. * Blood culture is negative so far. * Continuing Oxybutynin 5 mg twice a day PRN for bladder spasms or urine incontinence via urethra, which has not been required so far. #CONNOR: BUN 36 and creatinine 1.3 on admission, with a BUN/Cr >20 suggestive of dehydration. Currently BUN 17/creatinine 0.9, BUN/creatinine ratio 18.9. Improved. * Avoid nephrotoxic medications * Continue suprapubic catheterization. #Nonproductive cough/SOB: Etiology is unclear but could be secondary to upper respiratory infection given association with nasal congestion and rhinorrhea, although there is also high suspicion for PE as patient is relatively immobile. No focal consolidation on CXR, fever or leukocytosis to suggest pneumonia. Has recently been started on a chopped diet in light of recent choking episodes. * TRC and nebs * Regular diet per swallow evaluation today. * Robitussin PRN for cough #Generalized weakness/deconditioning: Could represent age-related progressive decline in performance status with possible contribution from UTI or upper respiratory tract infection. * PT evaluation: Recommends short-term rehabilitation * Vitamin B12 normal, vitamin D low * Continue Vitamin D 1000 units daily #Ventricular bigeminy: Present on admission EKG. K and Mg WNL. Troponin negative. * Troponin negative, EKG no acute changes #BPH: Takes finasteride 5 mg PO daily and silodosin 5 mg PO daily. * Continue eptqy-pd-skawdzsfe finasteride 5 mg PO daily * Tamsulosin 0.4 mg PO daily while inpatient as as silodosin is not on formulary #HLD: Takes lovastatin 40 mg PO daily * Atorvastatin 10 mg PO daily while inpatient as lovastatin is not on formulary * Continue plulq-yb-mhifgvipi aspirin 81 mg PO daily #GERD: * Continue adsii-bu-kkqpwijhq famotidine 20 mg PO daily #Peripheral neuropathy: * Continue chzyw-hm-jqeozigbr gabapentin 300 mg PO BID Diet: Regular thins. DVT ppx: SQ Heparin Code status: DNR/DNI Problem List: 1. UTI (urinary tract infection) 2. CONNOR (acute kidney injury) 3. HLD (hyperlipidemia) 4. GERD (gastroesophageal reflux disease) 5. Ventricular bigeminy 6. Generalized weakness 7. Suprapubic catheter Pain Ratin Pain Location: - Pain Goal: Pain 4 or less Pain Plan: prn Tomorrow's Labs & Rationales: - BRENDA PINONJESSICA 05/17/17 1154: Attending MD Review Statement Attending Statement Attending MD Statement: examined this patient, discuss w/resident/PA/WET TRIMMER, agreed w/resident/PA/WET TRIMMER, discussed with family, reviewed EMR data (avail), discussed with nursing, discussed with case mgmt, reviewed images, amended to note Attending Assessment/Plan: Patient seen and examined, less confused. He denies any pain. Patient was very confused when he came in and he was complaining of some lower abdominal pain. Both those issues are improved. Patient likely has a UTI and he is growing Pseudomonas as well as MRSA from his urine culture. Being on the treatment with abx, his confusion has improved. Although patient was afebrile and did not have any leukocytosis, his urinalysis was impressive. At this point we have decided to treat him with full course of treatment. He is already on ceftaz and we will add Bactrim DS 1 tablet twice a day for total of 7 days. He has a bed available tomorrow for the short-term rehabilitation. I spoke with case management who will find out if the antibiotic can be given through the peripheral line. If that is the case, no need to put PICC line but if the group home cannot administer IV antibiotics through peripheral line then he will require a PICC line. Continue other current medications. DVT prophylaxis: Heparin subcutaneous. Patient to continue to work with physical therapy.
[2017-05-17] MEDS ORDERED: OXYBUTYNIN CHLOR5 M2 PO (11:16)
[2017-05-17] MEDS ORDERED: VITAMIN D31000 UNI2 PO (11:16)
[2017-05-17] MEDS ORDERED: DOCUSATE SODIU100 M3 PO (11:16)
--- NOTE | 2017-05-17 11:21 | Patient Discharge Instructions ---
Discharge Instructions General Discharge Information You were seen/treated for: Urinary Tract Infection (UTI) Special Instructions: Please follow-up with your primary care provider within 10 days of discharge. Please return to emergency if symptoms worsen. Diet Continue normal diet: Yes Recommended Diet: Heart Healthy Activity Full Activity/No Limits: No Activity Self Limited: Yes (Needs assistance) Acute Coronary Syndrome Inclusion Criteria At DC or during hospital stay patient has or had the following: ACS DIAGNOSIS No Discharge Core Measures Meds if any: Prescribed or Continued at Discharge Meds if any: NOT Prescribed or Continued at Discharge Congestive Heart Failure Inclusion Criteria At DC or during hospital stay patient has or had the following: CHF DIAGNOSIS No Discharge Core Measures Meds if any: Prescribed or Continued at Discharge Meds if any: NOT Prescribed or Continued at Discharge Cerebrovascular accident Inclusion Criteria At DC or during hospital stay patient has or had the following: CVA/TIA Diagnosis No Discharge Core Measures Meds if any: Prescribed or Continued at Discharge Meds if any: NOT Prescribed or Continued at Discharge Venous thromboembolism Inclusion Criteria VTE Diagnosis No VTE Type NONE VTE Confirmed by (Test) NONE Discharge Core Measures - Per Current guidelines, there needs to be overlap - treatment for the first 5 days of Warfarin therapy. - If discharged on Warfarin prior to 5 days of - overlap therapy, the patient will need to be - assessed for post discharge needs including - *Post discharge parental anticoagulation - *Warfarin and/or parental anticoagulation education - *Follow up date to check INR post discharge At least 5 days overlap therapy as Inpatient No Meds if any: Prescribed or Continued at Discharge Note: Overlap Therapy is Warfarin and Anticoagulant Meds if any: NOT Prescribed or Continued at Discharge
[2017-05-17 14:11] VITALS: BP 148/68
[2017-05-17 23:18] VITALS: BP 130/71
--- NOTE | 2017-05-17 23:39 | NUR ---
NOTED BACTRIM ORDERED AND THEN SHORTLY THEREAFTER DISCONTINUED, ALONG WITH FORTAZ. HAD PAGED DR ELVIA ZUNIGA TO INQUIRE AND HAD NOT HEARD BACK FROM HIM. FOLLOWED UP LATER WITH DR FAVIOLA LONDON, DID NOT GET ANY INFO IN REPORT. SHE WILL RE DOSE ACCORDING TO THE ATTENDING'S NOTE AND FOLLOW UP WITH MORNING TEAM. INFORMED ONCOMING NURSE.
--- NOTE | 2017-05-18 06:26 | PN- Housestaff ---
EFRAIN PINON,ELVIA 05/18/17 0626: Subjective Follow-up For: Complicated UTI, possible colonization, confusion, better dehydration, better Complaints: no complaints Subjective: I followed up and examined the patient today. He is resting comfortably in his bed, but is not in distress, his mentation is good like yesterday. He is not confused. His vitals have remained stable, no overnight issues. He is currently off antibiotics. He is constipated and has not had a bowel movement since 14 May, despite having a bowel regimen. Review of Systems Constitutional: Reports: no symptoms. Objective Last 24 Hrs of Vital Signs/I&O Vital Signs Date Time Temp Pulse Resp B/P B/P Pulse O2 O2 Flow FiO2 Mean Ox Delivery Rate 05/18 1351 97.9 86 20 126/80 94 Room Air 05/18 1316 95 Room Air 05/18 1126 Room Air Room Air 05/18 1044 150/70 05/18 0800 Room Air 05/18 0630 97.9 75 20 156/96 93 Room Air 05/17 2318 97.9 87 20 130/71 95 Room Air 05/17 1959 96 Room Air Room Air Intake & Output 05/18 1600 05/18 0800 05/18 0000 Intake Total 1350 250 720 Output Total 590 875 Balance 1350 -340 -155 Intake, IV 0 10 Intake, Oral 1350 240 720 Number 0 0 Bowel Movements Output, Urine 590 875 Patient 68.039 kg Weight Physical Exam General Appearance: Alert, Oriented X3, Cooperative, No Acute Distress Other Physical Findings: Skin: No Rashes, No Breakdown, No Significant Lesion HEENT: Atraumatic, PERRLA, EOMI, Mucous Membr. moist/pink Cardiovascular: Regular Rate, Normal S1, Normal S2, No Murmurs Lungs: Clear to Auscultation, no wheeze heard today Abdomen: Normal Bowel Sounds, Soft, No Tenderness, No Hepatospenomegaly, No Masses, no CVA tenderness, suprapubic cath in place draining well, with no leaking from the site or from the urethra. Neurological: Normal Speech, Strength at 5/5 X4 Ext, Normal Tone, Sensation Intact, Cranial Nerves 3-12 NL, Reflexes 2+, Gait not examined. Extremities: No Clubbing, No Cyanosis, No Edema, Normal Pulses, No Tenderness/ Swelling Current Medications: Current Medications Sig/Tiffanie Start time Last Medication Dose Route Stop Time Status Admin Acetaminophen 650 MG Q6P PRN 05/15 0245 AC PO Acetaminophen 1,000 MG Q6P PRN 05/15 0245 AC IV Albuterol Sulfate 3 ML Q4H PRN 05/15 0945 DC 05/16 INH 2123 Artificial Tears 2 GTT 4 TIMES/DAY PRN 05/18 1015 AC OPH Aspirin 81 MG DAILY 05/15 1000 AC 05/18 PO 1040 Atorvastatin Calcium 10 MG 1700 05/15 1700 AC 05/17 PO 1556 Bisacodyl 10 MG DAILY PRN 05/17 0830 AC 05/18 SD 1358 Cholecalciferol 1,000 IU DAILY 05/15 1610 AC 05/18 PO 1040 Docusate Sodium 200 MG DAILY 05/17 1000 AC 05/18 PO 1040 Famotidine 20 MG DAILY 05/15 1000 AC 05/18 PO 1040 Finasteride 5 MG DAILY 05/15 1000 AC 05/18 PO 1040 Gabapentin 300 MG BID 05/15 1000 AC 05/18 PO 1040 Guaifenesin 10 ML Q6P PRN 05/15 0645 AC 05/16 PO 0343 Heparin Sodium 5,000 UNIT Q8 05/15 0600 AC 05/18 (Porcine) SC 1358 Magnesium Hydroxide 30 ML ONE ONE 05/18 0930 DC 05/18 PO 05/18 0931 1115 Oxybutynin Chloride 5 MG BID PRN 05/15 1615 AC PO Polyethylene Glycol 17 GM DAILY NEEDED PRN 05/15 0045 AC PO Senna/Docusate Sodium 1 TAB QPM 05/15 2200 AC 05/17 PO 2146 Tamsulosin HCl 0.4 MG DAILY 05/15 1000 AC 05/18 PO 1044 Trimethoprim/ 1 TAB BID 05/18 1000 CAN Sulfamethoxazole PO Assessment/Plan Assessment: Mr. Vernon is a 87 y/o M with PMHx of BPH c/b urinary retention s/p suprapubic catheter placement, TIA/CVA and HTN who presents with progressive weakness, confusion, dark urine and dry cough. #Complicated UTI: Meets criteria for complicated UTI given suprapubic catheter that was placed for urinary retention in the setting of BPH (02/02) and later exchanged one week prior to current presentation. Prior h/o UTI with Klebsiella pneumoniae and Pseudomonas aeuriginosa sensitive to ciprofloxacin. He was on oral ciprofloxacin for 1 week prior to admission. He has remained afebrile, and no leukocytosis. * Urology consultation appreciated. * Urine culture positive for Pseudomonas sensitive to ceftazidime but resistant to ciprofloxacin, and MRSA sensitive to Bactrim, Vancomycin. * Considering his chronic suprapubic catheterization and recent infections, this appears as urinary tract colonization rather than urinary tract infection, which was confirmed after consulting infectious disease Zack Goff MD. * Patient was thus discontinued from ceftazidime and Bactrim yesterday evening, for the above-mentioned reason. While being off antibiotic, he has not spiked temperature, or leukocytosis. His mental status has not changed either. * Patient is stable to be discharged to short-term rehabilitation facility today. However, he has been constipated since the day of admission on , despite bowel regimen ordered earlier. Constipation is one of the causes for confusion in the elderly population, thus this has to be addressed before he can be discharged safely. Bowel regimen made more aggressive today. * Continuing Oxybutynin 5 mg twice a day PRN for bladder spasms or urine incontinence via urethra, which has not been required so far. #CONNOR: BUN 36 and creatinine 1.3 on admission, with a BUN/Cr >20 suggestive of dehydration. This could be the cause of his initial confusion. Currently BUN 17/creatinine 0.9, BUN/creatinine ratio 18.9. Improved. * Avoid nephrotoxic medications * Continue suprapubic catheterization. #Nonproductive cough/SOB: Etiology is unclear but could be secondary to upper respiratory infection given association with nasal congestion and rhinorrhea, although there is also high suspicion for PE as patient is relatively immobile. No focal consolidation on CXR, fever or leukocytosis to suggest pneumonia. Has recently been started on a chopped diet in light of recent choking episodes. * TRC and nebs * Robitussin PRN for cough #Generalized weakness/deconditioning: Could represent age-related progressive decline in performance status with possible contribution from UTI or upper respiratory tract infection. * PT evaluation: Recommends short-term rehabilitation * Vitamin B12 normal, vitamin D low * Continue Vitamin D 1000 units daily #Ventricular bigeminy: Present on admission EKG. K and Mg WNL. Troponin negative. * Troponin negative, EKG no acute changes #BPH: Takes finasteride 5 mg PO daily and silodosin 5 mg PO daily. * Continue tkead-sl-ozwumzkfw finasteride 5 mg PO daily * Tamsulosin 0.4 mg PO daily while inpatient as as silodosin is not on formulary #HLD: Takes lovastatin 40 mg PO daily * Atorvastatin 10 mg PO daily while inpatient as lovastatin is not on formulary * Continue efdyw-nk-wdyiuvxbd aspirin 81 mg PO daily #GERD: * Continue jvvum-un-qqqlvlopp famotidine 20 mg PO daily #Peripheral neuropathy: * Continue ioeof-st-whkxjfyhx gabapentin 300 mg PO BID Diet: Regular thins. DVT ppx: SQ Heparin Code status: DNR/DNI Problem List: 1. Suprapubic catheter 2. Constipation 3. Generalized weakness 4. CONNOR (acute kidney injury) 5. BPH (benign prostatic hyperplasia) 6. Chronic suprapubic catheter Pain Ratin Pain Location: - Pain Goal: Pain 4 or less Pain Plan: prn Tomorrow's Labs & Rationales: - JESSICA GUTIERREZ MD 05/18/17 1256: Attending MD Review Statement Attending Statement Attending MD Statement: examined this patient, discuss w/resident/PA/TOLL LINEMAN, agreed w/resident/PA/TOLL LINEMAN, reviewed EMR data (avail), discussed with nursing, discussed with case mgmt, amended to note Attending Assessment/Plan: Patient seen and examined, overall feels okay. We stopped antibiotics yesterday because this urine culture is considered to be a colonization and not a true urinary tract infection. This was discussed with infectious disease Dr. Zack Goff MD. Patient's initial presentation of generalized weakness and confusion is likely secondary to the dehydration. Reviewing his medications he found that patient was recently prescribed trazodone which he could not remember why. His confusion could be related to that. At this point his trazodone has been stopped. Patient's home medications also include Flexeril. Ideally speaking Flexeril should be avoided in elderly population. Patient is constipated and we have ordered bowel regimen. Once he has a bowel movement, he is stable to be discharged to rehabilitation.
[2017-05-18 06:30] VITALS: BP 156/96
[2017-05-18 13:51] VITALS: BP 126/80
--- NOTE | 2017-05-18 15:02 | NUR ---
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
[2017-05-18 17:43] VITALS: BP 126/80
== END 2017-05-18 18:21 | DRG 641 ==
LOC: ERH 21:03 → 2NB 22:31 → ERHI 22:31 → ENRESERV 05-15 01:13 → 2NB 05-15 01:56
PROVIDERS: Emergency Medicine; Preventive Medicine Public Health & General Preventive Medicine; Student in an Organized Health Care Education/Training Program; ADMIT Student in an Organized Health Care Education/Training Program
DX: E86.0 Dehydration (principal); N17.9 Acute kidney failure, unspecified; G62.9 Polyneuropathy, unspecified; N40.1 Benign prostatic hyperplasia with lower urinary tract symptoms; R33.8 Other retention of urine; I10 Essential (primary) hypertension; E78.5 Hyperlipidemia, unspecified; K21.9 Gastro-esophageal reflux disease without esophagitis; R05 Cough; R00.8 Other abnormalities of heart beat; K59.00 Constipation, unspecified; Z66 Do not resuscitate; Z86.73 Personal history of transient ischemic attack (TIA), and cerebral infarction without residual deficits; Z87.891 Personal history of nicotine dependence
CPT/HCPCS: 2NBP; 87184; ERO; 36415; 81001; 82436; 87040; 87086; 93005; 93010; 97110-GO; 97112-GO; 97161-GP; 97530-GO; J0696; J0713; J1644; J3490

== ENCOUNTER 2018-07-31 09:18 | Emergency (ER) | payer OTHER, MEDICARE ==
[~2018-07-31] VITALS: Ht 167.6 cm; Wt 68.0 kg
[~2018-07-31 09:18] MED LIST changes: +ATIVAN0.5 M1 PO; +CEFTAZIDIME1 G2 IV; +OXYBUTYNIN CHLOR5 M2 PO; +TRAZODONE HCL50 M1 PO; +VANCO 1 GR1 GM/250 M IV; +VITAMIN D31000 UNI2 PO
--- NOTE | 2018-07-31 09:33 | ED GI/GU/ABDOMINAL COMPLAINT ---
History of Present Illness General Chief Complaint: General Adult Stated Complaint: BIBA CLOGGED CATH Source: patient, old records, EMS, [facility] Exam Limitations: dementia Vital Signs & Intake/Output Vital Signs & Intake/Output Vital Signs Date Time Temp Pulse Resp B/P B/P Pulse O2 O2 Flow FiO2 Mean Ox Delivery Rate 07/31 0949 Room Air Room Air 07/31 920 97.7 65 18 141/86 95 Room Air Allergies Coded Allergies: Penicillins (RASH 02/19/16) Reconcile Medications Aspirin (Werner Chewable Aspirin) 81 MG TAB.CHEW 1 TAB PO DAILY HEART ( Reported) Ceftazidime 1 GRAM VIAL 1,000 MG IV Q12 Urinary infection Cholecalciferol (Vitamin D3) 1,000 UNIT TABLET 1,000 IU PO DAILY SUPPLEMENT FOR DEFICIENCY Docusate Sodium 100 MG CAPSULE 200 MG PO DAILY PRN CONSTIPATION Famotidine 20 MG TABLET 1 TAB PO DAILY GI (Reported) Finasteride 5 MG TABLET 1 TAB PO DAILY PROSTATE (Reported) Gabapentin 300 MG CAPSULE 1 CAP PO BID neuropathy (Reported) Lorazepam (Ativan) 0.5 MG TABLET 1 TAB PO DAILY NEEDED ANXIETY (Reported) Lovastatin 40 MG TABLET 1 TAB PO DAILY CHOLESTEROL (Reported) with food Polyethylene Glycol 3350 (Miralax) 119 GM POWDER 17 GM PO DAILY PRN CONSTIPATION Sennosides/Docusate Sodium (Senna S Tablet) 8.6 MG-50 MG TABLET 1 TAB PO QPM GI (Reported) Silodosin (Rapaflo) 4 MG CAPSULE 1 CAP PO QPM BPH (Reported) Vancomycin/0.9 % Sod Chloride (Vanco 1 Gram/250 Ml-0.9% NaCl) 1 GRAM/250 ML PLAST..BAG 1 BAG IV DAILY urinary tract infection Triage Nurses Notes Reviewed? yes HPI: Patient brought in for evaluation of a clogged suprapubic catheter. Patient has been urinating through his penis since it. Patient has no complaints. There are no fevers or chills. Patient denies any pain. Past History Travel History Traveled to [place] past 21 day No Medical History Any Pertinent Medical History? see below for history Neurological: CVA, peripheral neuropathy, TIA EENT: cataracts Cardiovascular: aortic aneurysm, hypertension, hyperlipidemia Respiratory: NONE Gastrointestinal: GERD Hepatic: NONE Renal: benign prost hyperplasia Musculoskeletal: chronic back pain, osteoarthritis, C5-C6 stenosis Psychiatric: NONE Endocrine: NONE Blood Disorders: NONE Cancer(s): NONE [employer] FABRICATION/Reproductive: NONE History of MRSA: Yes History of VRE: No History of CDIFF: No Surgical History Surgical History: cataract removal (bilateral), hernia repair status post suprapubic cystostomy January 2017 Psychosocial History Who do you live with Patient/Self Services at Home Home Health Aide What is your primary language Lao Tobacco Use: Cognitive Impairment Family History Family History, If Any: MOTHER FH: cancer Hx Contributory? No Review of Systems Review of Systems Constitutional: Reports: no symptoms. Physical Exam Physical Exam General Appearance: well developed/nourished, alert, awake Head: atraumatic Neck: normal inspection, supple Respiratory: normal breath sounds, chest non-tender, no respiratory distress, lungs clear Cardiovascular: regular rate/rhythm, normal peripheral pulses Gastrointestinal: normal bowel sounds, soft, non-tender Extremities: normal range of motion Neurologic/Psych: no motor/sensory deficits Core Measures ACS in differential dx? No Sepsis Present: No Sepsis Focused Exam Completed? No Progress Differential Diagnosis: UTI/pyelo, cLOGGED SUPRAPUBIC CATHETER Plan of Care: Orders Procedure Date/time Status Pinedo, Insertion/Removal/Asses 07/31 956 Active CULTURE,URINE 07/31 956 Active URINALYSIS 07/31 956 Complete Laboratory Tests 07/31/18 1025: Urine Color STRAW, Urine Clarity CLDY H, Urine pH 6.5, Ur Specific Kiron 1.020, Urine Protein 30 H, Urine Ketones NEG, Urine Nitrite NEG, Urine Bilirubin NEG, Urine Urobilinogen 0.2, Ur Leukocyte Esterase LARGE H, Ur Microscopic SEDIMENT EXAMINED, Urine RBC 50-75 H, Urine WBC > 75 H, Urine Bacteria MANY H, Urine Hemoglobin LARGE H, Urine Glucose NEG Microbiology 07/31 1025 URINE ROUT: Urine Culture - RECD Initial ED EKG: none Comments: Unable to unclog the catheter. Pinedo catheter has been placed with good drainage. Patient is stable to return to his nursing facility and will have outpatient follow-up with urology to replace the suprapubic catheter. Departure Departure Disposition: ACUTE REHAB FACILITY Condition: Stable Clinical Impression Primary Impression: Pinedo catheter in place Referrals: Marquis PINON,Catrachito Espinosa (PCP/Family) Departure Forms: Customer Survey General Discharge Information
[2018-07-31 11:05] VITALS: BP 138/72
== END 2018-07-31 11:15 ==
LOC: ERH 09:18
DX: T83.098A Other mechanical complication of other urinary catheter, initial encounter (principal); I10 Essential (primary) hypertension; E78.5 Hyperlipidemia, unspecified; N40.0 Benign prostatic hyperplasia without lower urinary tract symptoms; K21.9 Gastro-esophageal reflux disease without esophagitis; G62.9 Polyneuropathy, unspecified; Z79.82 Long term (current) use of aspirin
CPT/HCPCS: 87184; 81001; 87086; 87147